=== PATIENT | male | born 1940 ===

== ENCOUNTER → 2020-08-10 10:53 | Outpatient (BNVA) | payer MEDICARE, SELFPAY | PROVIDERS: PCP Internal Medicine; Visit Provider Urology | DX: R39.12 Poor urinary stream (principal); R35.1 Nocturia; N32.0 Bladder-neck obstruction | CPT/HCPCS: 51798; 99212 ==

== ENCOUNTER → 2021-08-10 08:23 | Outpatient (BNVA) | payer MEDICARE, SELFPAY | PROVIDERS: PCP Internal Medicine; Visit Provider Urology | DX: R39.12 Poor urinary stream (principal); R35.1 Nocturia; N32.0 Bladder-neck obstruction; Z79.899 Other long term (current) drug therapy | CPT/HCPCS: 51798; 99212 ==

== ENCOUNTER 2022-08-07 08:30 | Outpatient (REF) | payer MEDICARE, SELFPAY ==
[2022-08-07 10:25] LABS: Prostate Specific Antigen 1.65 ng/mL (<0.05-4.0)
== END 2022-08-07 08:31 | disposition home or self-care (01) ==
LOC: HO.LAB 08:30
PROVIDERS: Visit Provider Urology
DX: Z12.5 Encounter for screening for malignant neoplasm of prostate (principal); N13.8 Other obstructive and reflux uropathy; N32.0 Bladder-neck obstruction; N40.1 Benign prostatic hyperplasia with lower urinary tract symptoms
CPT/HCPCS: 36415; 84153

== ENCOUNTER → 2022-08-13 08:11 | Outpatient (BNVA) | payer MEDICARE, SELFPAY | PROVIDERS: PCP Internal Medicine; Visit Provider Urology | DX: R35.1 Nocturia (principal); R39.12 Poor urinary stream; N32.0 Bladder-neck obstruction | CPT/HCPCS: 51798; 99212 ==

== ENCOUNTER 2023-08-08 07:57 | Outpatient (REF) | payer MEDICARE, SELFPAY ==
[2023-08-08 11:33] LABS: Prostate Specific Antigen 1.93 ng/mL (<0.05-4.0)
== END 2023-08-08 07:58 | disposition home or self-care (01) ==
LOC: HO.HMGCLDS 07:57
PROVIDERS: PCP Internal Medicine; Visit Provider Urology
DX: N32.0 Bladder-neck obstruction (principal); Z12.5 Encounter for screening for malignant neoplasm of prostate
CPT/HCPCS: 36415; 84153

== ENCOUNTER 2023-08-14 08:11 | Outpatient (AMB) | payer MEDICARE, SELFPAY ==
--- NOTE | 2023-08-14 08:24 | MHC.OFFVIS ---
Intake Visit Reasons: 1Y PSA/PVR(set) Intake Note: Patient is Present for PVR/PSA Urology Med:Finasteride, Terazosin Antibiotic Allergy:None Blood Thinner:Warfarin Last PVR: 0 Todays PVR: 14 Allergies No Known Allergies Allergy (Verified 08/14/23 08:31) HPI Comments Details: All QUIÑONEZ is a very pleasant Japanese male. He is a patient of Dr Harman. He is seen for the following urologic conditions. - lower urinary tract symptoms Yearly review Combination finasteride and terazosin PVR 20 Previously had failed when tried coming off terazosin Uses finasteride daily 12 month follow-up Lower Urinary Tract Symptoms: Here with his - She is translating Japanese for me Twelve month review Continues with combination therapy terazosin and finasteride Effective bladder emptying with reasonable stream Current visit is for further evaluation of, predominate obstructive symptoms. Current treatment includes 11/10 , medication, alpha roland, terazosin 2mg 12/10 , medication, alpha roland, terazosin 10mg add finasteride 06/11 trial stopping terazosin failed Prostate Symptom Score Moderate (9-19), Bother 4. Symptoms include 11/10 incomplete emptying, intermittency, weak stream, straining, nocturia (>2), and are progressing 12/10 , weak stream, nocturia (>2), and are stable 06/11 , incomplete emptying, weak stream, nocturia (>2), and are improving. Results from testing include cystoscopy Trilobar hypertrophy 12/10 Prior Prostate Score moderate. PSA PSA 11/10 4.8, 05/11 2.3, 05/12 2.3, 08/16 1.65, 08/17 1.9 Prostate volume 75gm US 11/10. [facility] Medical History Bladder outlet obstruction Bladder outlet obstruction History of kidney stones HTN (hypertension) Nocturia Nocturia Weak urinary stream Weak urinary stream Review of Systems Const Denies chills and Denies fever(s) Card Reports no additional complaints and Denies syncope Resp Denies cough GI Denies abdominal pain and Denies heartburn Reports as per HPI and Denies change in libido Neuro Denies syncope Psych Denies change in libido Endo Denies change in libido Physical Exam Const General: cooperative, healthy appearing, comfortable and no acute distress Orientation/consciousness: patient oriented x3 HEENT Face and sinus: Yes normal facial exam Mouth: moist mucous membranes Neck Neck: Yes normal visual inspection, Yes full ROM and Yes trachea midline Chest Chest palpation & inspection: normal inspection of the chest Resp Effort & Inspection: normal respiratory effort, able to speak in complete sentences and no respiratory distress GI Inspection: Yes normal to inspection Back/Spine/Pelvis Cervical Spine: normal cervical lordosis Thoracic/Lumbar Spine: thoracic and lumbar spine normal to inspection Skin General skin exam: no rashes or lesions noted Neuro General: patient oriented x3, gait normal, tone normal and moves all extremities Extrem General: Yes normal to inspection and Yes capillary refill normal Office Procedures Post Void Residual Post Residual Void Post Void Residual (PVR): 14 [id number]-[id number] Void Residual by ultrasound Assessment & Plan Assessment & Plan (1) Bladder outlet obstruction: Code(s): N32.0 - Bladder-neck obstruction Category: Medical (2) Nocturia: Code(s): R35.1 - Nocturia Category: Medical Plan Twelve month follow-up Orders: Orders AMB Post Void Residual by ultrasound Today N32.0 - Bladder-neck obstruction Prostate Specific Antigen 364 Days N32.0 - Bladder-neck obstruction Patient Instructions: Imaging studies, laboratory and physical exam results were discussed and reviewed in detail. No major barriers to patient understanding were identified. An opportunity to ask questions regarding the treatment plan was provided. All questions were answered. The patient expressed understanding and agreement with the above treatment plan. The patient is aware they should contact our office by phone for worsening of their current condition or the appearance of new urologic symptoms. Compliance is encouraged with any medications and followup testing that is ordered. It is a privilege to participate in the urologic care of your patient. If you have any questions or concerns regarding treatment for the above conditions, or other urologic issues, please do not hesitate to contact me. The office telephone contact is [phone]. This note is constructed using voice recognition software. While every effort has been made to ensure accuracy integrated circuit ic layout designer errors may have been included. Yours sincerely, Dr Vadim Kidd MD, [facility] - Urology Providers of Expert, Compassionate Care for the Genitourinary System Coding Level of Care Code Est Pt Level 4 (07449) Diagnoses Bladder outlet obstruction N32.0 Nocturia R35.1 CPT Codes Post Residual Void - PVR CPT Code: 41838-Guxj Void Residual by ultrasound ([id number])
== END 2023-08-14 08:38 | disposition home or self-care (01) ==
PROVIDERS: PCP Internal Medicine; Visit Provider Urology
DX: N32.0 Bladder-neck obstruction (principal); R35.1 Nocturia
CPT/HCPCS: 99213

== ENCOUNTER → 2023-08-14 08:11 | Outpatient (BNVA) | payer MEDICARE, SELFPAY | PROVIDERS: PCP Internal Medicine; Visit Provider Urology | DX: N32.0 Bladder-neck obstruction (principal); R35.1 Nocturia | CPT/HCPCS: 51798; 99212 ==

== ENCOUNTER 2023-12-07 08:11 | Observation (INO) | payer MEDICARE, SELFPAY ==
[2023-12-07] VITALS (7 sets, daily range): BP systolic 129–182; BP diastolic 48–78; PULSE 33–78; RESP 14–18; TEMP 36.4–37.2; O2SAT 95–98; BMI 33.2
--- NOTE | ~2023-12-07 | US_ITS ---
EXAMINATION: US SCROTUM CLINICAL INFORMATION: Testicular mass, swelling. COMPARISON: None available. TECHNIQUE: A sonogram of the scrotum was performed assessing burdick-scale appearance and color Doppler flow. Spectral Doppler analysis of the arterial and venous flow were performed in the testes bilaterally. FINDINGS: RIGHT: Right testicle measures 4 x 3 x 2.2 cm, volume 14 mL. Heterogeneous matrix, No focal testicular parenchymal lesions are visualized. Spectral Doppler analysis of the arterial and venous flow is normal in the right testis. Intratesticular echogenic foci probably punctate calcifications. Right epididymal head is normal in size. No right hydrocele or varicocele is seen. Right epididymal Doppler flow is normal. LEFT: Left testicle measures 2.3 x 1.7 x 2.3 cm, volume 4.7 mL. No focal testicular parenchymal lesions are visualized. Spectral Doppler analysis of the arterial and venous flow is normal in the left testis. Left epididymal: Large epididymal head cyst measuring up to 288 mL. US/US scrotum IMPRESSION: 1. No suspicious intratesticular mass. 2. Large left epididymal head cyst 288 mL. 3. Heterogeneous right testicle without evidence of focal lesion. 4. Echogenic foci in the right testicle probably punctate calcifications. Electronically signed by: Gabriel Handley MD 12/07/2023 10:29 AM EDT
--- NOTE | ~2023-12-07 | US_ITS ---
EXAMINATION: US SCROTUM CLINICAL INFORMATION: Testicular mass, swelling. COMPARISON: None available. TECHNIQUE: A sonogram of the scrotum was performed assessing burdick-scale appearance and color Doppler flow. Spectral Doppler analysis of the arterial and venous flow were performed in the testes bilaterally. FINDINGS: RIGHT: Right testicle measures 4 x 3 x 2.2 cm, volume 14 mL. Heterogeneous matrix, No focal testicular parenchymal lesions are visualized. Spectral Doppler analysis of the arterial and venous flow is normal in the right testis. Intratesticular echogenic foci probably punctate calcifications. Right epididymal head is normal in size. No right hydrocele or varicocele is seen. Right epididymal Doppler flow is normal. LEFT: Left testicle measures 2.3 x 1.7 x 2.3 cm, volume 4.7 mL. No focal testicular parenchymal lesions are visualized. Spectral Doppler analysis of the arterial and venous flow is normal in the left testis. Left epididymal: Large epididymal head cyst measuring up to 288 mL. US/US scrotum doppler IMPRESSION: 1. No suspicious intratesticular mass. 2. Large left epididymal head cyst 288 mL. 3. Heterogeneous right testicle without evidence of focal lesion. 4. Echogenic foci in the right testicle probably punctate calcifications. Electronically signed by: Gabriel Handley MD 12/07/2023 10:29 AM EDT
--- NOTE | 2023-12-07 08:34 | ED_ITS ---
HPI - Male Genitourinary General Chief complaint: Urogenital-Male Stated complaint: private area discomfort Time Seen by Provider: 12/07/23 08:18 Source: patient and family Mode of arrival: ambulatory Limitations: language barrier (Zambian speaking) History of Present Illness HPI Narrative: Patient is an 83-year-old male Zambian speaking presenting to emergency department with and son for evaluation. Patient did not mention his current symptoms to anyone up until today. He has been experiencing left testicular swelling for ?months?. states that when she checked recently it was ?hard like a goose egg?. They contacted his urologist Dr. Kidd, and were able to get an appointment scheduled but not until later this month 12/23/2023. He denies any pain, trauma, redness, swelling, pain with urination. No associated abdominal pain. No abnormal penile discharge or hematuria. Related Data Home Medications ?Medication ?Instructions ?Recorded ?Confirmed lisinopril 2.5 mg tablet 2.5 mg PO DAILY 08/10/20 08/13/22 simvastatin 10 mg tablet 10 mg PO BEDTIME 08/10/20 08/13/22 warfarin 5 mg tablet 5 mg PO DAILY 08/10/20 08/13/22 lisinopril 5 mg tablet 5 mg PO BEDTIME 08/10/21 08/13/22 Previous Rx's ?Medication ?Instructions ?Recorded finasteride 5 mg tablet 5 mg PO DAILY 90 days #90 tabs 08/14/23 terazosin 10 mg capsule 10 mg PO BEDTIME 90 days #90 caps 08/14/23 Allergies Allergy/AdvReac Type Severity Reaction Status Date / Time No Known Allergies Allergy Verified 12/07/23 08:15 [facility] Past Medical History Medical History HTN (hypertension) History of kidney stones Weak urinary stream Bladder outlet obstruction Nocturia Weak urinary stream Bladder outlet obstruction Nocturia Social History Social History Advance Directives: Yes Advance Directives Information Provided: No Advance Directives on File: No Physical Exam 2 Vital Signs: Vital Signs: Last Vital Signs Temp 98.9 F 12/07/23 10:38 Pulse 42 L 12/07/23 10:38 Resp 14 12/07/23 10:38 BP 129/48 L 12/07/23 10:38 Pulse Ox 95 12/07/23 10:38 O2 Del Method Room Air 12/07/23 10:38 BMI result Body Mass Index 33.2 Appearance: Alert.?Oriented to person, place and time. No acute distress.?Normal affect. Neck: Normal inspection.? Neck supple.?? CVS: Heart sounds normal. Normal heart rate and rhythm.? Pulses normal.?? Respiratory: No respiratory distress.? Lung sounds clear to auscultation bilaterally?? Abdomen: Soft and non-tender. Normoactive bowel sounds. Urogenital: Performed with supervisor drying and winding, ED RN Kerline : Left testicular enlargement, no erythema or warmth, no pain upon palpation. Some decreased swelling while supine. Negative cremasteric reflex. Negative phren sign Skin: Skin warm and dry.? Normal skin color.? Extremities: No lower extremity edema.? Neuro: Moves all extremities spontaneously. Sensation intact bilaterally. Ambulates with normal steady gait. Course Reevaluation(s) Reevaluation #1: ED forensic technician was obtaining routine vital signs patient was found to be bradycardic with pulse in the 40s. Patient is entirely asymptomatic at this time. Patient's states that he had a routine EKG with primary care doctor in March of this year and was advised that ?the heart was a little slow?. On telemetry appears to be possibly AFib. EKG was obtained revealing AFib slow ventricular response rate of 41, incomplete right bundle-branch block, QTC 420, no acute ischemic findings. informs at this time that he has a history of atrial fibrillation, on review of pharmacy records he is prescribed metoprolol, no evidence of beta- blockers he is on lisinopril. Pulses noted to drop as low as in the 30s. Remains asymptomatic. I discussed this case with my attending Dr. Carias, recommends no intervention at this time. Should patient become symptomatic will consider atropine 0.5 mg Scrotal ultrasound without evidence of torsion, found to have a large left epididymal head cyst 280 mL concerning for cystadenoma benign tumor verses possible carcinoma Reviewed these findings with patient's son and . Planning for hospital admission, will speak with hospitalist Time: 10:51 Medical Decision Making Medical Decision Making MDM Narrative: Patient is an 83-year-old male with past medical history of hypertension, bladder outlet obstruction, nephrolithiasis, atrial fibrillation on warfarin presenting to emergency department for evaluation of testicular swelling. Decreased fullness while supine suspect hydrocele versus spermatocele involving the left testicle. Basic serum labs, urinalysis, and ultrasound be obtained for further evaluation. Patient without pain at this time otherwise appears well, nontoxic, afebrile. Differential Diagnosis Differential Diagnoses: The differential diagnosis associated with the presentation includes (Hydrocele, varicocele, testicular cancer, lower suspicion for torsion) Admission/Observation Consideration of admission/observation: Escalation of care including admission/observation considered (See narrative above and course narrative for further detail) Lab Data 12/07/23 08:48 12/07/23 08:48 Labs: Lab Results 12/07/23 12/07/23 Range/Units 08:48 10:01 WBC 5.0 (4.8-10.8) X10*3/uL RBC 4.34 L (4.60-5.80) X10*6/uL Hgb 13.2 L (14.0-18.0) g/dl Hct 40.8 L (42.0-52.0) % MCV 94.0 (80.0-98.0) fL MCH 30.4 (27.0-33.0) pg MCHC 32.4 (31.0-36.0) g/dl RDW 13.4 (11.0-16.0) % Plt Count 148 L (160-400) X10*3/uL MPV 10.1 (9.4-12.4) fL Immature Gran % (Auto) 0.4 (0.0-0.4) % Neut % (Auto) 69.4 (45-73) % Lymph % (Auto) 17.8 L (20-40) % [place] % (Auto) 9.6 (2-11) % Eos % (Auto) 2.0 (0-4) % Baso % (Auto) 0.8 (0-2) % Lymph # (Auto) 0.9 L (1.2-4.9) X10*3/uL [place] # (Auto) 0.5 (0.1-1.2) X10*3/uL Eos # (Auto) 0.1 (0.0-0.4) X10*3/uL Baso # (Auto) 0.0 (0.0-0.2) X10*3/uL Abs Immat Gran (auto) 0.02 (0.00-0.03) X10*3/uL Absolute Neuts (auto) 3.5 (2.0-8.3) x10*3/uL Absolute Nucleated RBC 0.000 (0.0-0.012) X10*3/uL Nucleated RBC % (auto) 0.0 (0.0-0.2) /100WBC Sodium 143 (135-145) mmol/L Potassium 3.8 (3.3-5.1) mmol/L Chloride 108 (96-108) mmol/L Carbon Dioxide 24 (22-29) mmol/L Anion Gap 15 (12-20) BUN 24 H (9-16) mg/dL Creatinine 0.95 (0.5-1.4) mg/dL Estim Creat Clear Calc 68.9 Estimated GFR > 60 Random Glucose 101 (60-115) mg/dL Calcium 8.7 (8.4-10.2) mg/dL Total Bilirubin 0.6 (0.0-1.0) mg/dL AST 16 (5-37) U/L ALT 15 (0-40) U/L Alkaline Phosphatase 76 (39-117) U/L Total Protein 6.4 L (6.5-8.0) g/dL Albumin 4.0 (3.5-5.0) g/dL Urine Color Yellow Urine Appearance Clear Urine pH 5.5 (5.0-9.0) Ur Specific [place] 1.015 (1.005-1.025) Urine Protein Negative (Neg-Trace) mg/dL Urine Glucose (UA) Negative (Negative) mg/dL Urine Ketones Negative (Negative) mg/dL Urine Blood Large (3+) H (Negative) Urine Nitrite Negative (Negative) Ur Leukocyte Esterase Trace H (Negative) Urine RBC 11-20 H (0-2) /HPF Urine WBC 0-5 (0-5) /HPF Ur Squamous Epith Cells 0-2 (0-2) /HPF Urine Bacteria None Seen (None Seen) Hyaline Casts 0-2 (0-2) /LPF Independent Interpretation I performed an independent interpretation of an: EKG (See course narrative) Radiology Impression Discussion of test interpretation with radiology: I have reviewed the radiologist's reading. Radiologist Impression: US/US scrotum IMPRESSION: 1. No suspicious intratesticular mass. 2. Large left epididymal head cyst 288 mL. 3. Heterogeneous right testicle without evidence of focal lesion. 4. Echogenic foci in the right testicle probably punctate calcifications. Independent Historian Clinical information obtained from an independent historian. History obtained from or confirmed by: Spouse External Record Review External record reviewed: Outpatient record (Urology Dr. Kidd last visit July of 2023 routine follow-up) Discharge Plan Discharge Clinical Impression: Atrial fibrillation with slow ventricular response, Cyst of epididymis Patient Disposition: Admitted As Inpatient Prescriptions: No Action finasteride 5 mg tablet 5 mg PO DAILY 90 Days Qty: 90 3RF lisinopril 5 mg tablet 5 mg PO BEDTIME simvastatin 10 mg tablet 10 mg PO BEDTIME warfarin 5 mg tablet 5 mg PO DAILY lisinopril 2.5 mg tablet 2.5 mg PO DAILY terazosin 10 mg capsule 10 mg PO BEDTIME 90 Days Qty: 90 3RF Print Language: Zambian
[2023-12-07 08:52] LABS: MANUAL DIFF FLAG NO
[2023-12-07 09:06] LABS: Basophils Percent Auto 0.8 % (0-2); Eosinophils Absolute Auto 0.1 X10*3/uL (0.0-0.4); Hematocrit 40.8 % (42.0-52.0); Hemoglobin 13.2 g/dl (14.0-18.0); Imm Gran Abs Auto 0.02 X10*3/uL (0.00-0.03); Imm Gran Pct Auto 0.4 % (0.0-0.4); Lymphocytes Absolute Auto 0.9 X10*3/uL (1.2-4.9); Lymphocytes Percent Auto 17.8 % (20-40); Mean Corpuscular HGB Conc 32.4 g/dl (31.0-36.0); Mean Corpuscular Hemoglobin 30.4 pg (27.0-33.0); Mean Platelet Volume 10.1 fL (9.4-12.4); Monocytes Absolute Auto 0.5 X10*3/uL (0.1-1.2); Monocytes Percent Auto 9.6 % (2-11); Neutrophils Absolute Auto 3.5 x10*3/uL (2.0-8.3); Neutrophils Percent Auto 69.4 % (45-73); Platelet Count 148 X10*3/uL (160-400); Red Blood Count 4.34 X10*6/uL (4.60-5.80); Red Cell Distribution Width 13.4 % (11.0-16.0)
[2023-12-07 09:32] LABS: Alanine Aminotransferase 15 U/L (0-40); Alkaline Phosphatase 76 U/L (39-117); Anion Gap 15 (12-20); Aspartate Amino Transferase 16 U/L (5-37); Bilirubin Total 0.6 mg/dL (0.0-1.0); Blood Urea Nitrogen 24 mg/dL (9-16); Calcium 8.7 mg/dL (8.4-10.2); Carbon Dioxide 24 mmol/L (22-29); Chloride 108 mmol/L (96-108); Creatinine Clr Calc Pharmacy 68.9; Estimated Glomerular Filt Rate > 60; Glucose Random 101 mg/dL (60-115); Potassium 3.8 mmol/L (3.3-5.1); Sodium 143 mmol/L (135-145); Total Protein 6.4 g/dL (6.5-8.0)
[2023-12-07 10:08] LABS: Appearance Urine Clear; Color Urine Yellow; Glucose Urine UA Negative (Negative); Leukocyte Esterase Urine Trace (Negative); Nitrite Urine Negative (Negative); PH 5.5 (5.0-9.0); Specific Gravity - Urine 1.015 (1.005-1.025); UMIC TRIGGER UACC YES; Urine Blood Large (3+) (Negative); Urine Ketones Negative (Negative); Urine Protein Negative (Neg-Trace)
[2023-12-07 10:12] LABS: Bacteria Urine None Seen (None Seen); Hyaline Casts Urine 0-2 /LPF (0-2); Squamous Epithelial Cell Urine 0-2 /HPF (0-2); WBC Urine 0-5 /HPF (0-5)
--- NOTE | 2023-12-07 10:50 | ECG_ITS ---
Test Reason : EMELYN Blood Pressure : / mmHG Vent. Rate : 041 BPM Atrial Rate : 000 BPM P-R Int : 000 ms QRS Dur : 110 ms QT Int : 510 ms P-R-T Axes : 000 028 024 degrees QTc Int : 420 ms Atrial fibrillation with slow ventricular response Incomplete right bundle branch block Abnormal ECG No previous ECGs available Referred By: Rukhsana Lomas Electronically Signed By:CAROLINE DODGE
--- NOTE | 2023-12-07 11:11 | PC.NURSE ---
patient found to be bradyc 30-40's - placed on media monitor, ekg obtained showing afib which patient does have history of. denies any associated symptoms at this time, plan for admission d/t hr. IV established, additional lab work obtained and sent
[2023-12-07 11:26] LABS: INTERNATIONAL NORM RATIO 3.3 (0.9-1.1); Prothrombin Time 38.3 SEC (10.9-12.4)
--- NOTE | 2023-12-07 11:34 | P.HPHOSP_ITS ---
History of Present Illness Date of Service: 12/07/23 Chief Complaint: left tesicular swelling Patient is an 83-year-old male with a past medical history of BPH and bladder outlet obstruction, AFib on Coumadin and not on any rate control drugs, hyperlipidemia who presented to the emergency room for evaluation of left testicular swelling. It is unclear how long this has been ongoing but, according to the who is bedside, the patient 1st reported this about 1 week prior to arrival to the ED. at that point the patient was given a follow-up appointment with Urology later this month. However today they decided to come to the emergency room for further evaluation. There has been no changes in size, no fevers or chills, no erythema. There is no bleeding or drainage. The patient reports an increase in swelling while walking/standing which improves with lying in the supine position. However, on arrival to the emergency room the patient was noted to be bradycardic. He was placed on the monitor and an EKG was completed which showed AFib with slow ventricular response with the heart rate dipping down into the 30s. The patient has remained asymptomatic throughout. He denies any chest pain or shortness of breath. He denies any dizziness or lightheadedness. There are no reports of syncopal episodes. In regards to his AFib, he is on Coumadin but is not on any rate-controlling drugs. Given his persistent bradycardia, the patient has been requested for hospitalization. The patient is seen and examined in the emergency room around 11:15. He does not appear to be in any distress and denies any current complaints. His and son are at bedside who helped translate and corroborate the story. Review of Systems 2 Review of Systems: Negative except HPI/interval history. [facility] Medical History HTN (hypertension) History of kidney stones Weak urinary stream Bladder outlet obstruction Nocturia Weak urinary stream Bladder outlet obstruction Nocturia Social History Patient Tobacco Use Status: Tobacco use Unknown Advance Directives: Yes Advance Directives Information Provided: No Advance Directives on File: No Meds Allergies Allergy/AdvReac Type Severity Reaction Status Date / Time No Known Allergies Allergy Verified 12/07/23 08:15 Active Medications: Current Medications Acetaminophen (Acetaminophen 325 Mg Tablet) 650 mg PO Q6H PRN PRN Reason: Pain, Mild (Pain Scale 1-3), fever or headache Calcium Carbonate (Calcium Carbonate 750 Mg Tab.Chew) 750 mg PO Q4H PRN PRN Reason: Heartburn Magnesium Hydroxide (Milk Of Magnesia 30 Ml Oral.Susp) 30 ml PO DAILY PRN PRN Reason: Constipation Melatonin (Melatonin 3 Mg Tablet) 6 mg PO BEDTIME PRN PRN Reason: Insomnia Sodium Chloride (0.9 % Sodium Chloride Flush 3 Ml Syringe) 3 ml IVFLUSH QSHIFT [facility] Home Medications ?Medication ?Instructions ?Recorded ?Confirmed ?Last Taken ?Type simvastatin 10 mg tablet 10 mg PO BEDTIME 08/10/20 12/07/23 12/06/23 History warfarin 5 mg tablet 5 mg PO SUTUWETHFRSA@1800 08/10/20 12/07/23 12/07/23 History acetaminophen 325 mg tablet 650 mg PO Q4H PRN Headache, Fever 12/07/23 12/07/23 Unknown History Or Pain cyanocobalamin (vitamin B-12) 1,000 mcg IM Q30D 12/07/23 12/07/23 12/03/23 History 1,000 mcg/mL injection solution (Dodex) lisinopril 10 mg tablet 10 mg PO DAILY 12/07/23 12/07/23 12/07/23 History warfarin 5 mg tablet 7.5 mg PO MO@1800 12/07/23 12/07/23 12/01/23 History Physical Exam 2 Vital Signs and Narrative: Vital Signs: Last Vital Signs Temp 98.9 F 12/07/23 10:38 Pulse 42 L 12/07/23 10:38 Resp 14 12/07/23 10:38 BP 129/48 L 12/07/23 10:38 Pulse Ox 95 12/07/23 10:38 O2 Del Method Room Air 12/07/23 10:38 BMI result Body Mass Index 33.2 Const: Other: Constitutional - Awake and Alert, No apparent distress Eyes - PERRLA, EOMI Cardiovascular - IRR, bradycardic in the 40s mostly; does increase to 50s with some exertion Respiratory - Normal lung expansion, Normal respiratory effort, No respiratory distress, CTA bilaterally Gastrointestinal - NT / ND; +BS; No rebound or guarding - L testicular swelling without significant tenderness or erythema Extremities - no calf tenderness bilaterally, no swelling Musculoskeletal - Normal inspection, normal ROM Skin - Warm/Dry Neurological - Alert & oriented x3, No focal deficit Psychological - Appropriate affect Results Labs 12/07/23 08:48 12/07/23 08:48 Labs: Laboratory Results - last 24 hr 12/07/23 12/07/23 12/07/23 08:48 10:01 11:08 MCV 94.0 MCH 30.4 MCHC 32.4 RDW 13.4 Plt Count 148 L MPV 10.1 Immature Gran % (Auto) 0.4 Neut % (Auto) 69.4 Lymph % (Auto) 17.8 L [place] % (Auto) 9.6 Eos % (Auto) 2.0 Baso % (Auto) 0.8 Lymph # (Auto) 0.9 L [place] # (Auto) 0.5 Eos # (Auto) 0.1 Baso # (Auto) 0.0 Abs Immat Gran (auto) 0.02 Absolute Neuts (auto) 3.5 Absolute Nucleated RBC 0.000 Nucleated RBC % (auto) 0.0 PT 38.3 H INR 3.3 H Anion Gap 15 Estim Creat Clear Calc 68.9 Estimated GFR > 60 Random Glucose 101 Calcium 8.7 Total Bilirubin 0.6 AST 16 ALT 15 Alkaline Phosphatase 76 Total Protein 6.4 L Albumin 4.0 Urine Color Yellow Urine Appearance Clear Urine pH 5.5 Ur Specific [place] 1.015 Urine Protein Negative Urine Glucose (UA) Negative Urine Ketones Negative Urine Blood Large (3+) H Urine Nitrite Negative Ur Leukocyte Esterase Trace H Urine RBC 11-20 H Urine WBC 0-5 Ur Squamous Epith Cells 0-2 Urine Bacteria None Seen Hyaline Casts 0-2 Imaging Radiologist's Impressions: Impressions Scrotum Ultrasound 12/07/23 09:07 IMPRESSION: 1. No suspicious intratesticular mass. 2. Large left epididymal head cyst 288 mL. 3. Heterogeneous right testicle without evidence of focal lesion. 4. Echogenic foci in the right testicle probably punctate calcifications. Electronically signed by: Gabriel Handley MD 12/07/2023 10:29 AM EDT Assessment and Plan (1) Atrial fibrillation with slow ventricular response: Status: Acute Plan 83 yo M who presented to ED for the evaluation of L testicular swelling and was noted to have a. fib with slow ventricular response. He will be place under observation for further cardiac monitoring and evaluation by the cardiology team. 1. A. Fib with slow ventricular response Asymptomatic Not on any rate controlling meds will monitor on tele and request cardiology consult INR 3.3 -- will hold coumadin today and re-eval tomorrow 2. BPH with bladder outlet obstruction continue fisasteride; hold terazosin 3. HLD statin 4. HTN hold lisinopril for now; pt is normotensive Full Code DVT pptx -- on Coumadin Quality Stroke Does the patient have a stroke diagnosis?: No VTE Prior VTE?: No VTE Risk Level:: Medical - moderate - high VTE Device Contraindication: Treatment Not Indicated VTE Drug Contraindication: N/A - Med Ordered
--- NOTE | 2023-12-07 11:58 | PHA.MEDREC ---
Pharmacy Consult ? Medication Reconciliation Pharmacy has completed the medication reconciliation. Spoke with at bedside. Pt takes warfarin in the morning, he took today's dose. Warfarin is dose 5m daily except 1.5 tablets (7.5mg) on Mondays. Pt's vitamin b 12 inject [id number] was last given on Friday. Pt took Warfarin this morning.
--- NOTE | 2023-12-07 12:35 | PC.NURSE ---
remains [place] at this time, continues to deny any related symptoms. ambulates independently to the bathroom with steady gait, remains asymptomatic upon ambulation. provided with hospital bed - at bedside in recliner.
[2023-12-07] MEDS: 0.9 % Sodium Chloride Flush 3 ML SYRINGE IVFLUSH ×2 (14:54→20:14)
[2023-12-07] MEDS: Atorvastatin Calcium 10 MG TABLET PO (17:00)
[2023-12-08] VITALS (12 sets, daily range): BP systolic 131–182; BP diastolic 60–80; PULSE 32–62; RESP 16–20; TEMP 36.3–36.9; O2SAT 95–98
[2023-12-08] MEDS: hydrALAZINE HCl 20 MG/ML VIAL 10 MG IVPUSH (00:05)
--- NOTE | 2023-12-08 00:57 | PC.NURSE ---
BP at 23:39 was manual 182/78. Assessed pt - states has a slight headache but has them time to time Notified MD- 10mg IV hydralizine ordered and administered with good effect pt states head feels better and BP 140/60 at 00:31
[2023-12-08] MEDS: Acetaminophen 325 MG TABLET 650 MG PO ×2 (04:07→14:10)
[2023-12-08 07:25] LABS: Prothrombin Time 34.6 SEC (10.9-12.4)
[2023-12-08] MEDS: Finasteride 5 MG TABLET PO (08:13)
[2023-12-08] MEDS: Atorvastatin Calcium 10 MG TABLET PO (08:13)
[2023-12-08] MEDS: 0.9 % Sodium Chloride Flush 3 ML SYRINGE IVFLUSH ×3 (08:14→20:22)
--- NOTE | 2023-12-08 08:29 | MHC.CM.PN ---
CM met with Patient and his at bedside and addressed HELM with them, providing Patient with the original and a copy has been placed on the chart. Patient lives in a house with his and he required no services nor DME [employer]. Home self care is the goal and CM has initiated and will follow for dc planning. PCP is Dr. ELDER and will transport to home. explains that Patient has a HCP that was completed by a Data Entry Processor and that she and her 2 Sons (Abelino & Rashawn) are the Agents; agrees to supply CM with a copy.
--- NOTE | 2023-12-08 10:00 | CA_ITS ---
Transthoracic Echocardiogram Patient (Last, First, Middle): All Dumont, Gender: Male Date of : 1940 Age: 83 Procedure Date: 12/08/2023 Procedure Type: Transthoracic Echocardiogram [place] [facility] [place]: 177.8 cm Weight: 104.78 kg BSA: 2.22 m2 Heart Rate: bpm BP: 161 / 79 mmHg Merchandising Manager: Referring MD: Dmitri Diane MD Symptoms: CHF Study Quality: Adequate ECG Rhythm: Atrial Fibrillation Conclusions: - The left ventricular systolic function is normal. The calculated ejection fraction is 62% by biplane method. - Severely increased right ventricular cavity size. - No obvious valvular pathology seen on this study. - Mild pulmonary hypertension is present. - There is mild dilatation of the ascending aorta measuring 4.00 cm. Findings Left Ventricle Normal left ventricular cavity size. There is mildly increased left ventricular wall thickness. The left ventricular systolic function is normal. The calculated ejection fraction is 62% by biplane method. There is no evidence of regional wall motion abnormalities. Diastolic function is indeterminate on the basis of available data. Right Ventricle Severely increased right ventricular cavity size. There is normal right ventricular systolic function. Atria The left atrium is moderately dilated. The right atrium is severely dilated. Aortic Valve There is mild calcification of the aortic valve. There is no aortic valve stenosis. There is no aortic valve regurgitation. Mitral Valve There is mild mitral annular calcification. There is trace mitral valve regurgitation. There is no mitral valve stenosis. Pulmonic Valve The pulmonic valve is likely normal. Tricuspid Valve There is mild tricuspid valve regurgitation. Mild pulmonary hypertension is present. Great Vessels There is mild dilatation of the ascending aorta measuring 4.00 cm. Venous The inferior vena cava is mildly dilated and collapses greater than 50% with inspiration. Pericardium/Pleural There is no evidence of pericardial effusion. Prior Study Comparison No prior study available for comparison. Recommendations, Care & Conclusions No obvious valvular pathology seen on this study. Measurements 2D Linear Measurements IVSd: 1.21 0.6-0.9/0.6-1.0 cm LVIDd: 5.06 3.9-5.3/4.2-5.9 cm LVIDd Index: 2.28 2.4-3.2/2.2-3.1 cm/m2 LVIDs: 2.94 2.0-3.6 cm LVPWd: 1.24 0.7-1.1 cm Ao Root: 3.20 2.1-3.5 cm LA Diam: 5.50 2.7-3.8/3.0-4.0 cm LAIDs Index: 2.48 1.5-2.3 cm/m2 LV Mass: 305.77 67-162/88-224 g LV Mass Index: 137.73 43-95/49-115 g/m2 LVOT Diam: 2.10 3.0+(-)1.3 cm 2D Systolic Function EF 4C: 66.20 >55% EF 2C: 59.20 >55% EF BiP: 61.80 >55% Mitral Valve MV Pk E: 1.20 MV Decel Time: 287.00 E'Lateral: 11.70 E'Medial: 8.16 E/E' Med: 14.70 E/E' Lat: 10.30 PHT: 84.00 MVA PHT: 2.62 Decel Shannon: 4.16 Aortic Valve AoV Pk Rex: 2.09 AoV Mn Rex: 1.38 AoV VTI: 0.46 AoV Pk Grad: 17.00 Aov Mn Grad: 9.00 ANDREW Cont.VTI: 2.04 LVOT LVOT Pk Rex: 1.01 LVOT Mn Rex: 0.72 LVOT VTI: 0.27 LVOT Pk Grad: 4.00 LVOT Mn Grad: 2.00 LVOT Diam: 2.10 LVOT Area: 3.46 Diastolic Function MV Pk E: 1.20 E'Medial: 8.16 E/E' Med: 14.70 E' Laterial: 11.70 E/E' Lat: 10.30 Right Ventricle TAPSE (mm): 31.00 TVS' Rex: 12.00 Tricuspid Valve TR Pk Rex: 3.08 TR Pk Grad: 38.00 RA Press: 3.00 RVSP: 41.00 Great Vessels Aorta Ao Root-2D: 3.20 2.0-3.7 cm Ao Asc: 4.00 2.1-3.4 cm Pulmonary Valve PV Pk Rex: 1.05 Peak PV Grad: 4.00 Updated in Other Vendor System with Status of Final Dmitri Diane MD electronically signed on 12/08/2023 12:47:55 PM with status of Final
--- NOTE | 2023-12-08 10:44 | HO.PM.IMPN ---
Subjective Subjective Date of Service: 12/08/23 Interval History: seen and examined no complaints at this time son bedside who translates Review of Systems Negative except HPI/interval history. Physical Exam Vital Signs: Vital Signs: Last Vital Signs Temp 97.4 F 12/08/23 07:43 Pulse 44 L 12/08/23 07:43 Resp 20 12/08/23 07:43 BP 161/79 H 12/08/23 07:43 Pulse Ox 97 12/08/23 07:43 O2 Del Method Room Air 12/08/23 07:43 BMI result Body Mass Index 33.2 Const: Other: General - no acute distress, appears comfortable Cardiovascular - IRR with bradycardia Lungs - normal respiratory effort, clear to auscultation bilaterally, no wheezing Abdomen - soft, nontender, no rebound or guarding Extremities - no edema bilaterally - L testicular swelling Neuro - awake and alert, no focal deficits Objective Data Active Medications Acetaminophen (Acetaminophen 325 Mg Tablet) 650 mg PO Q6H PRN PRN Reason: Pain, Mild (Pain Scale 1-3), fever or headache Last Admin: 12/08/23 04:07 Dose: 650 mg Documented By: JAYSON Atorvastatin Calcium (Atorvastatin Calcium 10 Mg Tablet) 10 mg PO DAILY [facility] Last Admin: 12/08/23 08:13 Dose: 10 mg Documented By: KARLIE Calcium Carbonate (Calcium Carbonate 750 Mg Tab.Chew) 750 mg PO Q4H PRN PRN Reason: Heartburn Finasteride (Finasteride 5 Mg Tablet) 5 mg PO DAILY [facility] Last Admin: 12/08/23 08:13 Dose: 5 mg Documented By: KARLIE Magnesium Hydroxide (Milk Of Magnesia 30 Ml Oral.Susp) 30 ml PO DAILY PRN PRN Reason: Constipation Melatonin (Melatonin 3 Mg Tablet) 6 mg PO BEDTIME PRN PRN Reason: Insomnia Sodium Chloride (0.9 % Sodium Chloride Flush 3 Ml Syringe) 3 ml IVFLUSH QSHIFT [facility] Last Admin: 12/08/23 08:14 Dose: 3 ml Documented By: KARLIE Labs 12/07/23 08:48 12/07/23 08:48 Labs: Laboratory Results - last 24 hr 12/07/23 12/08/23 11:08 05:52 Hold Purple Top SEE NOTE PT 38.3 H 34.6 H INR 3.3 H 3.0 H Assessment and Plan (1) Cyst of epididymis: Status: Acute (2) Atrial fibrillation with slow ventricular response: Status: Acute Plan 83 yo M who presented to ED for the evaluation of L testicular swelling and was noted to have a. fib with slow ventricular response. He will be place under observation for further cardiac monitoring and evaluation by the cardiology team. 1. A. Fib with slow ventricular response Asymptomatic Not on any rate controlling meds cardiology input appreciated -- will check echo contineu to monitor on tele for now 2. BPH with bladder outlet obstruction 2a. L testicular swelling continue fisasteride; hold terazosin u/s showing epididymal cyst with volume 288 -- urology consult reqquested 3. HLD statin 4. HTN hold lisinopril for now; pt is normotensive Full Code DVT pptx -- on Coumadin reason for ongoing hospitalization -- telemonitor + urology eval Quality Stroke Does the patient have a stroke diagnosis?: No VTE Prior VTE?: No VTE Risk Level:: Medical - moderate - high VTE Device Contraindication: Treatment Not Indicated VTE Drug Contraindication: N/A - Med Ordered
--- NOTE | 2023-12-08 11:07 | PM.CNCAR ---
History of Present Illness History of Present Illness Date of Service: 12/08/23 Chief complaint: bradycardia Narrative: This is a cardiology consultation regarding bradycardia. It appears that patient might be going to [facility] for outpatient cardiac care. Has a history of atrial fibrillation, possibly slow ventricular response at baseline based on discussion with son/. It seems that there is mention of possible pacemaker in the future and hence suspect this is a long-term issue. Patient does not take any rate control or rhythm control medications. He is on anticoagulation with Coumadin. Current admissions because of testicular swelling. In this context, telemetry had shown atrial fibrillation slow rate and hence we are asked to see him. Patient's only complaint is testicular swelling and nothing else. No dizziness, syncope, presyncope, shortness of breath, angina, leg swelling or in fact anything else from cardiac. Also denies any history of coronary artery disease or myocardial infarction or cardiomyopathy. Review of Systems Review of Systems: Yes all other systems are reviewed and are negative Constitutional: Constitutional: Reports as per HPI and Reports no additional constitutional complaints Eyes: Eyes: Reports as per HPI and Denies no additional eye complaints ENT: Denies system reviewed and no additional complaints, except as documented and Reports as per HPI Cardiovascular: Cardiovascular: Reports as per HPI, Reports no additional cardiovascular complaints, Denies acrocyanosis, Denies cool extremities, Denies chest pain, Denies leg edema, Denies lightheadedness, Denies palpitations and Denies dyspnea Respiratory: Respiratory: Reports as per HPI, Denies no additional respiratory complaints and Denies dyspnea Gastrointestinal: Gastrointestinal: Reports as per HPI and Denies no additional gastrointestinal complaints Genitourinary: Genitourinary: Reports no additional male genitourinary complaints and Reports as per HPI Musculoskeletal: Musculoskeletal: Reports no additional musculoskeletal complaints and Reports as per HPI Integumentary/Breasts: Skin/Breast: Reports system reviewed and no additional complaints, except as docu Neurologic: Reports system reviewed and no additional complaints, except as documented and Reports as per HPI Psychiatric: Psychiatric: Reports no additional psychiatric complaints and Reports as per HPI Endocrine: Endocrine: Reports no additional endocrine complaints, Reports as per HPI and Denies palpitations Hematologic/Lymphatic: Hematologic/Lymphatic: Reports no additional hematologic/lymphatic complaints and Reports as per HPI Allergic/Immunologic: Allergic/Immunologic: Reports no additional allergic/immunologic complaints and Reports as per HPI [facility] Past Medical History Medical History (Updated 12/08/23 @ 11:52 by Dmitri Diane MD) HTN (hypertension) History of kidney stones Weak urinary stream Bladder outlet obstruction Nocturia Weak urinary stream Bladder outlet obstruction Nocturia Family History Family History Father No problems noted. Mother No problems noted. Social History Social History Household Members: Spouse Housing: House Do you presently have visiting nurse or other home services: No Patient Tobacco Use Status: Tobacco use Unknown Second Hand Smoke Exposure: No service: No Meds Allergies Allergy/AdvReac Type Severity Reaction Status Date / Time No Known Allergies Allergy Verified 12/07/23 08:15 Active Medications: Current Medications Acetaminophen (Acetaminophen 325 Mg Tablet) 650 mg PO Q6H PRN PRN Reason: Pain, Mild (Pain Scale 1-3), fever or headache Last Admin: 12/08/23 04:07 Dose: 650 mg Atorvastatin Calcium (Atorvastatin Calcium 10 Mg Tablet) 10 mg PO DAILY [facility] Last Admin: 12/08/23 08:13 Dose: 10 mg Calcium Carbonate (Calcium Carbonate 750 Mg Tab.Chew) 750 mg PO Q4H PRN PRN Reason: Heartburn Finasteride (Finasteride 5 Mg Tablet) 5 mg PO DAILY [facility] Last Admin: 12/08/23 08:13 Dose: 5 mg Magnesium Hydroxide (Milk Of Magnesia 30 Ml Oral.Susp) 30 ml PO DAILY PRN PRN Reason: Constipation Melatonin (Melatonin 3 Mg Tablet) 6 mg PO BEDTIME PRN PRN Reason: Insomnia Sodium Chloride (0.9 % Sodium Chloride Flush 3 Ml Syringe) 3 ml IVFLUSH QSHIFT [facility] Last Admin: 12/08/23 08:14 Dose: 3 ml Home Medications ?Medication ?Instructions ?Recorded ?Confirmed ?Last Taken ?Type simvastatin 10 mg tablet 10 mg PO BEDTIME 08/10/20 12/07/23 12/06/23 History warfarin 5 mg tablet 5 mg PO SUTUWETHFRSA@1800 08/10/20 12/07/23 12/07/23 History acetaminophen 325 mg tablet 650 mg PO Q4H PRN Headache, Fever 12/07/23 12/07/23 Unknown History Or Pain cyanocobalamin (vitamin B-12) 1,000 mcg IM Q30D 12/07/23 12/07/23 12/03/23 History 1,000 mcg/mL injection solution (Dodex) lisinopril 10 mg tablet 10 mg PO DAILY 12/07/23 12/07/23 12/07/23 History warfarin 5 mg tablet 7.5 mg PO MO@1800 12/07/23 12/07/23 12/01/23 History Physical Exam Vital Signs: Vital Signs: Last Vital Signs Temp 97.4 F 12/08/23 07:43 Pulse 44 L 12/08/23 07:43 Resp 20 12/08/23 07:43 BP 161/79 H 12/08/23 07:43 Pulse Ox 97 12/08/23 07:43 O2 Del Method Room Air 12/08/23 07:43 BMI result Body Mass Index 33.2 Const: General: comfortable and no acute distress Orientation/consciousness: patient oriented x3 HEENT: Other: Unremarkable Head: Yes normal to inspection Neck: Neck: Yes normal visual inspection Chest: Chest palpation & inspection: normal inspection of the chest Resp: Auscultation: clear to auscultation bilaterally Cardio: Palpation: normal PMI Heart sounds: S1 normal heart sound present, S2 normal heart sound present, no gallops, no murmurs and no rubs GI: Palpation (GI): Soft to palpation Back/Spine/Pelvis: Other: unremarkable Skin: General skin exam: no rashes or lesions noted Neuro: General: patient oriented x3 Extrem: General: Yes normal to inspection Psych: Mental Status: mental status grossly normal Objective Labs and Meds 12/07/23 08:48 12/07/23 08:48 Lab results: Laboratory Results - last 24 hr 12/07/23 12/08/23 11:08 05:52 Hold Purple Top SEE NOTE PT 38.3 H 34.6 H INR 3.3 H 3.0 H ECG Interpretation: EKG with atrial fibrillation with a slow rate at 41/Min. Incomplete right bundle-branch block. Currently, rate in the 50s. Assessment and Plan (1) Atrial fibrillation with slow ventricular response: Status: Acute (2) HTN (hypertension): Status: Acute (3) Cyst of epididymis: Status: Acute Plan Suspect this is a long-term issue and doubt acute. He does not have any clear-cut symptoms from the bradycardia and also does not have any heart failure symptoms or signs. Hence no specific management for the unless there is profound bradycardia or prolonged pauses and with symptoms. We will get an echocardiogram to ensure there is no significant right heart dysfunction as that could sometimes lead to testicular swelling. However, on the ultrasound of scrotum, there is a large cyst and most likely that is the reason for the swelling. Discussed with son at the bedside and with over the phone. Discussed with Dr. Elkins. Procedures Date of Service Date of Service: 12/08/23
[2023-12-08] MEDS: lisinopriL 10 MG TABLET PO (12:34)
[2023-12-08] MEDS: Warfarin Sodium 7.5 MG TABLET PO (17:35)
--- NOTE | 2023-12-08 19:47 | PM.UROCN ---
History of Present Illness Consult details Consult date: 12/08/23 Narrative: CC: Left scrotal swelling 83-year-old [place]i speaking male Known to Urology in followed for BPH Admit with bradycardia Patient disclosed large swelling on left testicle Scrotal ultrasound performed - large epididymal cyst Discussed with patient and Will follow as outpatient with plan for excision Has come off terazosin and will stay on finasteride Review of Systems Constitutional: Constitutional: Reports as per HPI and Reports no additional constitutional complaints Cardiovascular: Cardiovascular: Reports as per HPI and Reports no additional cardiovascular complaints Respiratory: Respiratory: Reports as per HPI and Reports no additional respiratory complaints Gastrointestinal: Gastrointestinal: Reports as per HPI and Reports no additional gastrointestinal complaints Genitourinary: Genitourinary: Reports as per HPI Musculoskeletal: Musculoskeletal: Reports no additional musculoskeletal complaints and Reports as per HPI Neurologic: Reports system reviewed and no additional complaints, except as documented and Reports as per HPI [facility] Past Medical History Medical History (Updated 12/08/23 @ 11:52 by Dmitri Diane MD) HTN (hypertension) History of kidney stones Weak urinary stream Bladder outlet obstruction Nocturia Weak urinary stream Bladder outlet obstruction Nocturia Family History Family History (Updated 12/08/23 @ 11:48 by Dmitri Diane MD) Father No problems noted. Mother No problems noted. Social History Social History Household Members: Spouse Housing: House Do you presently have visiting nurse or other home services: No Patient Tobacco Use Status: Tobacco use Unknown Second Hand Smoke Exposure: No service: No Meds Allergies Allergy/AdvReac Type Severity Reaction Status Date / Time No Known Allergies Allergy Verified 12/07/23 08:15 Active Medications: Current Medications Acetaminophen (Acetaminophen 325 Mg Tablet) 650 mg PO Q6H PRN PRN Reason: Pain, Mild (Pain Scale 1-3), fever or headache Last Admin: 12/08/23 14:10 Dose: 650 mg Atorvastatin Calcium (Atorvastatin Calcium 10 Mg Tablet) 10 mg PO DAILY [facility] Last Admin: 12/08/23 08:13 Dose: 10 mg Calcium Carbonate (Calcium Carbonate 750 Mg Tab.Chew) 750 mg PO Q4H PRN PRN Reason: Heartburn Doxazosin Mesylate (Doxazosin Mesylate 2 Mg Tablet) 8 mg PO BEDTIME [facility] Finasteride (Finasteride 5 Mg Tablet) 5 mg PO DAILY [facility] Last Admin: 12/08/23 08:13 Dose: 5 mg Lisinopril (Lisinopril 10 Mg Tablet) 10 mg PO DAILY [facility]; Protocol Last Admin: 12/08/23 12:34 Dose: 10 mg Magnesium Hydroxide (Milk Of Magnesia 30 Ml Oral.Susp) 30 ml PO DAILY PRN PRN Reason: Constipation Melatonin (Melatonin 3 Mg Tablet) 6 mg PO BEDTIME PRN PRN Reason: Insomnia Sodium Chloride (0.9 % Sodium Chloride Flush 3 Ml Syringe) 3 ml IVFLUSH QSHIFT [facility] Last Admin: 12/08/23 17:35 Dose: 3 ml Warfarin Sodium (Warfarin Sodium 7.5 Mg Tablet) 7.5 mg PO MO@1800 [facility] Last Admin: 12/08/23 17:35 Dose: 7.5 mg Warfarin Sodium (Warfarin Sodium 5 Mg Tablet) 5 mg PO SUTUWETHFRSA@1800 [facility] Home Medications ?Medication ?Instructions ?Recorded ?Confirmed ?Last Taken ?Type simvastatin 10 mg tablet 10 mg PO BEDTIME 08/10/20 12/07/23 12/06/23 History warfarin 5 mg tablet 5 mg PO SUTUWETHFRSA@1800 08/10/20 12/07/23 12/07/23 History acetaminophen 325 mg tablet 650 mg PO Q4H PRN Headache, Fever 12/07/23 12/07/23 Unknown History Or Pain cyanocobalamin (vitamin B-12) 1,000 mcg IM Q30D 12/07/23 12/07/23 12/03/23 History 1,000 mcg/mL injection solution (Dodex) lisinopril 10 mg tablet 10 mg PO DAILY 12/07/23 12/07/23 12/07/23 History warfarin 5 mg tablet 7.5 mg PO MO@1800 12/07/23 12/07/23 12/01/23 History Physical Exam Vital Signs: Vital Signs: Last Vital Signs Temp 98.4 F 12/08/23 16:00 Pulse 52 12/08/23 16:00 Resp 19 12/08/23 16:00 BP 169/76 H 12/08/23 16:00 Pulse Ox 95 12/08/23 16:00 O2 Del Method Room Air 12/08/23 16:00 BMI result Body Mass Index 33.2 Const: General: cooperative, healthy appearing, comfortable and no acute distress Orientation/consciousness: patient oriented x3 HEENT: Face and sinus: Yes normal facial exam Mouth: moist mucous membranes Neck: Neck: Yes normal visual inspection, Yes full ROM and Yes trachea midline Chest: Chest palpation & inspection: normal inspection of the chest Resp: Effort & Inspection: normal respiratory effort, able to speak in complete sentences and no respiratory distress GI: Inspection: Yes normal to inspection Back/Spine/Pelvis: Cervical Spine: normal cervical lordosis Thoracic/Lumbar Spine: thoracic and lumbar spine normal to inspection Skin: General skin exam: no rashes or lesions noted Neuro: General: patient oriented x3, tone normal and moves all extremities Extrem: General: Yes normal to inspection and Yes capillary refill normal Results Labs 12/07/23 08:48 12/07/23 08:48 Labs: Abnormal lab results 12/08/23 Range/Units 05:52 PT 34.6 H (10.9-12.4) SEC INR 3.0 H (0.9-1.1) Urine 12/07/23 Range/Units 10:01 Urine Color Yellow Urine Appearance Clear Urine pH 5.5 (5.0-9.0) Ur Specific [place] 1.015 (1.005-1.025) Urine Protein Negative (Neg-Trace) mg/dL Urine Glucose (UA) Negative (Negative) mg/dL All other labs normal. Assessment and Plan (1) Cyst of epididymis: Status: Acute Plan Outpatient follow-up with Plan for intervention Nonacute urologic conditions Procedures Date of Service Date of Service: 12/08/23
[2023-12-08] MEDS: Doxazosin Mesylate 2 MG TABLET 8 MG PO (20:18)
[2023-12-09] MEDS: Acetaminophen 325 MG TABLET 650 MG PO (03:05)
[2023-12-09 03:12] VITALS: BP 160/68
[2023-12-09 04:00] VITALS: PULSE 51; RESP 20; TEMP 36.8; O2SAT 95
[2023-12-09 04:59] VITALS: PULSE 44
[2023-12-09 07:20] LABS: INTERNATIONAL NORM RATIO 2.4 (0.9-1.1); Prothrombin Time 27.9 SEC (10.9-12.4)
[2023-12-09 07:54] VITALS: BP 137/63; PULSE 52; RESP 18; TEMP 36.4; O2SAT 94
[2023-12-09] MEDS: 0.9 % Sodium Chloride Flush 3 ML SYRINGE IVFLUSH (08:13)
[2023-12-09] MEDS: Finasteride 5 MG TABLET PO (08:13)
[2023-12-09] MEDS: lisinopriL 10 MG TABLET PO (08:13)
[2023-12-09] MEDS: Atorvastatin Calcium 10 MG TABLET PO (08:13)
--- NOTE | 2023-12-09 10:47 | PM.PNCARD ---
Subjective Subjective Date of Service: 12/09/23 Interval history: Patient has no clear symptoms. is at the bedside and son this on the phone. Review of Systems Review of Systems Yes all other systems are reviewed and are negative Constitutional: Reports as per HPI and Reports no additional constitutional complaints Eyes: Reports as per HPI and Denies no additional eye complaints Denies system reviewed and no additional complaints, except as documented and Reports as per HPI Cardiovascular: Reports as per HPI, Reports no additional cardiovascular complaints, Denies acrocyanosis, Denies cool extremities, Denies chest pain, Denies leg edema, Denies lightheadedness, Denies palpitations and Denies dyspnea Respiratory: Reports as per HPI, Denies no additional respiratory complaints and Denies dyspnea Gastrointestinal: Reports as per HPI and Denies no additional gastrointestinal complaints Genitourinary: Reports no additional male genitourinary complaints and Reports as per HPI Musculoskeletal: Reports no additional musculoskeletal complaints and Reports as per HPI Skin/Breast: Reports system reviewed and no additional complaints, except as docu Reports system reviewed and no additional complaints, except as documented and Reports as per HPI Psychiatric: Reports no additional psychiatric complaints and Reports as per HPI Endocrine: Reports no additional endocrine complaints, Reports as per HPI and Denies palpitations Hematologic/Lymphatic: Reports no additional hematologic/lymphatic complaints and Reports as per HPI Allergic/Immunologic: Reports no additional allergic/immunologic complaints and Reports as per HPI Physical Exam Vital Signs: Last Vital Signs Temp 97.6 F 12/09/23 07:54 Pulse 52 12/09/23 07:54 Resp 18 12/09/23 07:54 BP 137/63 12/09/23 07:54 Pulse Ox 94 12/09/23 07:54 O2 Del Method Room Air 12/09/23 07:54 BMI result Body Mass Index 33.2 Const General: comfortable and no acute distress Orientation/consciousness: patient oriented x3 HEENT Other: Unremarkable Head: Yes normal to inspection Neck Neck: Yes normal visual inspection Chest Chest palpation & inspection: normal inspection of the chest Resp Auscultation: clear to auscultation bilaterally Cardio Palpation: normal PMI Heart sounds: S1 normal heart sound present, S2 normal heart sound present, no gallops, no murmurs and no rubs GI Palpation (GI): Soft to palpation Back/Spine/Pelvis Other: unremarkable Skin General skin exam: no rashes or lesions noted Neuro General: patient oriented x3 Extrem General: Yes normal to inspection Psych Mental Status: mental status grossly normal Objective Labs and Meds 12/07/23 08:48 12/07/23 08:48 Lab results: Laboratory Results - last 24 hr 12/09/23 06:42 Hold Purple Top SEE NOTE PT 27.9 H INR 2.4 H Progress Note: A&P Assessment and plan (1) Atrial fibrillation with slow ventricular response: Status: Acute (2) HTN (hypertension): Status: Acute (3) Cyst of epididymis: Status: Acute Plan Clinically, no symptoms or signs of any decompensation related to the atrial fibrillation with slow ventricular rate. Likely it is a long-term issue. At this time, there is no absolute indication for a pacemaker. He does not have any prolonged pauses, asystole, profound bradycardia, and most importantly lack of symptoms. In fact, states that when he is up and about his heart rate does go up. 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 Echocardiogram shows preserved LV function, LVEF 60% and increased right ventricular size. Atria are dilated. Overall, he can be discharged from cardiac standpoint. Further management in the outpatient setting. Blood pressure also seems better today. With regard to scrotal swelling, not clear what kind of surgery he needs. If it is just under local, should be able to proceed. Otherwise, he will need to have formal clearance through his own exhibition specialist and indication for pacer decided then. Discussed in detail with at bedside as well as son over the phone. Time Spent With Patient Time: Total time managing care of this patient today 47 minutes. This includes time spent in review of chart, laboratory data, imaging studies, review of telemetry, counseling patient, family, discussion with hospitalist, RN, documentation, coordination of care. Progress Note: Quality Stroke Does the patient have a stroke diagnosis?: No Procedures Date of Service Date of Service: 12/09/23
[2023-12-09 11:19] VITALS: BP 121/56; PULSE 53; RESP 18; TEMP 36.4; O2SAT 95
--- NOTE | 2023-12-09 12:11 | PM.DS ---
DS: Providers Provider Date of Service: 12/09/23 Date of admission: 12/07/23 11:29 Date of discharge: 12/09/23 Primary care physician: Bert Harman MD Consults: 12/07/23 11:29 Consult to Cardiology Routine Consulting Provider: [facility] Reason for consultation: a. fib with bradycardia in the 30s-40s 12/08/23 10:42 Consult to Urology Routine Consulting Provider: [facility] Reason for consultation: testicular swelling Attending physician on discharge: Александр Herron Discharging clinician: Александр Herron DS: Diagnosis Discharge Diagnosis (1) Atrial fibrillation with slow ventricular response: Status: Acute (2) HTN (hypertension): Status: Acute (3) Cyst of epididymis: Status: Acute DS: Summary Hospital Course Hospital Course: 83-year-old male with a past medical history of BPH and bladder outlet obstruction, AFib on Coumadin and not on any rate control drugs, hyperlipidemia who presented to the emergency room for evaluation of left testicular swelling. It is unclear how long this has been ongoing but, according to the who is bedside, the patient 1st reported this about 1 week prior to arrival to the ED. at that point the patient was given a follow-up appointment with Urology later this month. However today they decided to come to the emergency room for further evaluation. There has been no changes in size, no fevers or chills, no erythema. There is no bleeding or drainage. The patient reports an increase in swelling while walking/standing which improves with lying in the supine position. However, on arrival to the emergency room the patient was noted to be bradycardic. He was placed on the monitor and an EKG was completed which showed AFib with slow ventricular response with the heart rate dipping down into the 30s. The patient has remained asymptomatic throughout. He denies any chest pain or shortness of breath. He denies any dizziness or lightheadedness. There are no reports of syncopal episodes. In regards to his AFib, he is on Coumadin but is not on any rate-controlling drugs. Given his persistent bradycardia, the patient has been requested for hospitalization. The patient is seen and examined in the emergency room around 11:15. He does not appear to be in any distress and denies any current complaints. His and son are at bedside who helped translate and corroborate the story. Hospital course: 83 yo M who presented to ED for the evaluation of L testicular swelling and was noted to have a. fib with slow ventricular response- further workup testicular/ultrsound showed Large left epididymal head cyst ( seen by urology recomended outpatient follow up). afib with slow rate for which seen by cardiology-Clinically, no symptoms or signs of any decompensation related to the atrial fibrillation with slow ventricular rate. thouh to be Likely it is a long-term issue.Echocardiogram shows preserved LV function, LVEF 60% and increased right ventricular size. Atria are dilated. 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 plan: Follow-up with urology for epididymal cyst. Follow-up with Cardiology for AFib follow-up. Above management discussed with the patient detail length he understand and in agreement with the above plan, time spent 40 minute. Time Attestation Total time managing care of this patient today: 40 mintues. Discharge Coordination Time (in mins): 40 min Quality: Safe Use of Opioids Does Pt have an Active Cancer Diagnosis on the Problem List?: No Quality: Stroke Does the patient have a stroke diagnosis?: No Physical Exam Vital Signs: Vital Signs: Last Vital Signs Temp 97.6 F 12/09/23 11:19 Pulse 53 12/09/23 11:19 Resp 18 12/09/23 11:19 BP 121/56 L 12/09/23 11:19 Pulse Ox 95 12/09/23 11:19 O2 Del Method Room Air 12/09/23 11:19 BMI result Body Mass Index 33.2 Appearance: Alert.? Oriented X3.? cvs: irregular rythem, [id number] . res: clear to auscultation ,no rhonchii or wheezing abd: no rebound or guarding ,nt, bs present. ext pulses present , no cyanosis. neuro: axo3 , nonfocal. DS: Data Data Completed and Pending Labs on day of discharge: Laboratory Results - last 24 hr 12/09/23 06:42 Hold Purple Top SEE NOTE PT 27.9 H INR 2.4 H Imaging Chest x-ray: Radiologist's impression: ITS Impressions Scrotum Ultrasound 12/07/23 09:07 IMPRESSION: 1. No suspicious intratesticular mass. 2. Large left epididymal head cyst 288 mL. 3. Heterogeneous right testicle without evidence of focal lesion. 4. Echogenic foci in the right testicle probably punctate calcifications. Electronically signed by: Gabriel Handley MD 12/07/2023 10:29 AM EDT Discharge Plan Discharge Anticipated Discharge Date/Time: 12/09/23 12:03 Patient Disposition: Home, Self-Care Discharge Diagnosis: afib ,testicular (epididymal cyst) Referrals: Vadim Kidd MD [Physician] - 1 Week Bert Harman MD [Primary Care Provider] - 1 Week Discharge Medications: Continued finasteride 5 mg tablet 5 mg PO DAILY 90 Days Qty: 90 3RF acetaminophen 325 mg Tablet 650 mg PO Q4H PRN (Reason: Headache, Fever Or Pain) cyanocobalamin (vitamin B-12) [Dodex] 1,000 mcg/mL Solution 1,000 mcg IM Q30D lisinopril 10 mg tablet 10 mg PO DAILY warfarin 5 mg Tablet 7.5 mg PO MO@1800 simvastatin 10 mg tablet 10 mg PO BEDTIME warfarin 5 mg tablet 5 mg PO SUTUWETHFRSA@1800 terazosin 10 mg capsule 10 mg PO BEDTIME 90 Days Qty: 90 3RF Discharge Orders: Discharge Order (Routine); Ordered 12/09/23 Ordered By: Александр Herrno Diet: Advance to usual diet Activity on Discharge: As tolerated Stand Alone Forms: Patient Portal Discharge page Print Language: Serbian Care Plan Goals: 83 yo M who presented to ED for the evaluation of L testicular swelling and was noted to have a. fib with slow ventricular response- further workup testicular/ultrsound showed Large left epididymal head cyst ( seen by urology recomended outpatient follow up). afib with slow rate for which seen by cardiology-Clinically, no symptoms or signs of any decompensation related to the atrial fibrillation with slow ventricular rate. thouh to be Likely it is a long-term issue.Echocardiogram shows preserved LV function, LVEF 60% and increased right ventricular size. Atria are dilated. 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 Health Concerns: as above. Plan of Treatment: as above. Assessment: as above. Discharge Date/Time: 12/09/23 12:48
--- NOTE | 2023-12-09 12:32 | MHC.CM.PN ---
Patient has been medically cleared for dc to home today, self care.
== END 2023-12-09 12:48 | disposition home or self-care (01) ==
LOC: HO.ED 11:11 → HO.EDOVER 11:32 → HO.IMC 17:21
PROVIDERS: Nurse Practitioner Family; Admitting Provider Family Medicine; Emergency Provider Emergency Medicine; PCP Internal Medicine; Visit Provider Internal Medicine
DX: I48.19 Other persistent atrial fibrillation (principal); I10 Essential (primary) hypertension; N50.3 Cyst of epididymis; N50.89 Other specified disorders of the male genital organs; E78.5 Hyperlipidemia, unspecified; R00.1 Bradycardia, unspecified; Z79.899 Other long term (current) drug therapy; Z79.01 Long term (current) use of anticoagulants; Z87.442 Personal history of urinary calculi
CPT/HCPCS: 36415; 76870; 80053; 81001; 85025; 85610; 93005; 93306; 93975; 96374; 99222; 99285; J0360

== ENCOUNTER 2023-12-07 11:29 | Outpatient (BNV) | payer MEDICARE, SELFPAY | END 2023-12-08 10:00 | PROVIDERS: Admitting Provider Family Medicine; Emergency Provider Emergency Medicine; PCP Internal Medicine; Visit Provider Internal Medicine | DX: I35.8 Other nonrheumatic aortic valve disorders (principal); I34.81 Nonrheumatic mitral (valve) annulus calcification; I36.1 Nonrheumatic tricuspid (valve) insufficiency; I27.20 Pulmonary hypertension, unspecified | CPT/HCPCS: 93306 ==

== ENCOUNTER → 2023-12-07 11:29 | Outpatient (BNV) | payer MEDICARE, SELFPAY | PROVIDERS: Admitting Provider Family Medicine; Emergency Provider Emergency Medicine; PCP Internal Medicine; Visit Provider Urology | DX: N50.3 Cyst of epididymis (principal) | CPT/HCPCS: 99222 ==

== ENCOUNTER → 2023-12-07 11:29 | Outpatient (BNV) | payer MEDICARE, SELFPAY | PROVIDERS: Admitting Provider Family Medicine; Emergency Provider Emergency Medicine; PCP Internal Medicine; Visit Provider Family Medicine | DX: I48.91 Unspecified atrial fibrillation (principal); I10 Essential (primary) hypertension; N50.3 Cyst of epididymis | CPT/HCPCS: 99223; 99232; 99239 ==

== ENCOUNTER → 2023-12-07 11:29 | Outpatient (BNV) | payer MEDICARE, SELFPAY | PROVIDERS: Admitting Provider Family Medicine; Emergency Provider Emergency Medicine; PCP Internal Medicine; Visit Provider Internal Medicine | DX: I48.91 Unspecified atrial fibrillation (principal); I10 Essential (primary) hypertension; N50.3 Cyst of epididymis | CPT/HCPCS: 93010; 99223; 99233 ==

== ENCOUNTER 2023-12-23 09:26 | Outpatient (AMB) | payer MEDICARE, SELFPAY ==
--- NOTE | 2023-12-23 09:39 | A.OFFVIS_ITS ---
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 He is a patient of Dr Harman. He is seen for the following urologic conditions. - lower urinary tract symptoms Recent ER visit with painful prostate Left testicular swelling Ultrasound shows large epididymal cyst over 250 cc Recommend office drainage with sclerotherapy Will need to hold Coumadin for 2-3 days Lower Urinary Tract Symptoms: Here with his - She is translating Romansh for me Twelve month review Continues with combination therapy terazosin and finasteride Effective bladder emptying with reasonable stream Current visit is for further evaluation of, predominate obstructive symptoms. Current treatment includes 11/10 , medication, alpha roland, terazosin 2mg 12/10 , medication, alpha roland, terazosin 10mg add finasteride 06/11 trial stopping terazosin failed Prostate Symptom Score Moderate (9-19), Bother 4. Symptoms include 11/10 incomplete emptying, intermittency, weak stream, straining, nocturia (>2), and are progressing 12/10 , weak stream, nocturia (>2), and are stable 06/11 , incomplete emptying, weak stream, nocturia (>2), and are improving. Results from testing include cystoscopy Trilobar hypertrophy 12/10 Prior Prostate Score moderate. PSA PSA 11/10 4.8, 05/11 2.3, 05/12 2.3, 08/16 1.65, 08/17 1.9 Prostate volume 75gm US 11/10. [facility] Medical History (Updated 01/07/24 @ 13:59 by Vadim Kidd MD) HTN (hypertension) History of kidney stones Weak urinary stream Bladder outlet obstruction Nocturia Weak urinary stream Bladder outlet obstruction Nocturia Family History (Updated 12/08/23 @ 11:48 by Dmitri Diane MD) Father No problems noted. Mother No problems noted. Social History Household Members: Spouse Housing: House Do you presently have visiting nurse or other home services: No Patient Tobacco Use Status: Tobacco use Unknown Second Hand Smoke Exposure: No service: No Review of Systems Const Denies chills and Denies fever(s) Card Reports no additional complaints and Denies syncope Resp Denies cough GI Denies abdominal pain and Denies heartburn Reports as per HPI and Denies change in libido Neuro Denies syncope Psych Denies change in libido Endo Denies change in libido Physical Exam Const General: cooperative, healthy appearing, comfortable and no acute distress Orientation/consciousness: patient oriented x3 HEENT Face and sinus: Yes normal facial exam Mouth: moist mucous membranes Neck Neck: Yes normal visual inspection, Yes full ROM and Yes trachea midline Chest Chest palpation & inspection: normal inspection of the chest Resp Effort & Inspection: normal respiratory effort, able to speak in complete sentences and no respiratory distress GI Inspection: Yes normal to inspection Back/Spine/Pelvis Cervical Spine: normal cervical lordosis Thoracic/Lumbar Spine: thoracic and lumbar spine normal to inspection Skin General skin exam: no rashes or lesions noted Neuro General: patient oriented x3, gait normal, tone normal and moves all extremities Extrem General: Yes normal to inspection and Yes capillary refill normal Office Procedures Post Void Residual Post Residual Void Post Void Residual (PVR): 0 [id number]-Yvyk Void Residual by ultrasound Assessment & Plan Assessment & Plan (1) Cyst of epididymis: Code(s): N50.3 - Cyst of epididymis Category: Medical Plan Plan epididymal cyst drainage Orders: Orders AMB Post Void Residual by ultrasound 12/23/23 N32.0 - Bladder-neck obstruction Patient Instructions: Imaging studies, laboratory and physical exam results were discussed and reviewed in detail. No major barriers to patient understanding were identified. An opportunity to ask questions regarding the treatment plan was provided. All questions were answered. The patient expressed understanding and agreement with the above treatment plan. The patient is aware they should contact our office by phone for worsening of their current condition or the appearance of new urologic symptoms. Compliance is encouraged with any medications and followup testing that is ordered. It is a privilege to participate in the urologic care of your patient. If you have any questions or concerns regarding treatment for the above conditions, or other urologic issues, please do not hesitate to contact me. The office telephone contact is [phone]. This note is constructed using voice recognition software. While every effort has been made to ensure accuracy layup worker errors may have been included. Yours sincerely, Dr Vadim Kidd MD, [facility] - Urology Providers of Expert, Compassionate Care for the Genitourinary System Coding Level of Care Code Est Pt Level 3 (15530) Diagnoses Cyst of epididymis N50.3 CPT Codes Post Residual Void - PVR CPT Code: 32429-Xuac Void Residual by ultrasound ([id number])
== END 2023-12-23 10:35 | disposition home or self-care (01) ==
LOC: HO.HUSH 09:27
PROVIDERS: PCP Internal Medicine; Visit Provider Urology
DX: N50.3 Cyst of epididymis (principal)
CPT/HCPCS: 99213

== ENCOUNTER → 2023-12-23 09:26 | Outpatient (BNVA) | payer MEDICARE, SELFPAY | PROVIDERS: PCP Internal Medicine; Visit Provider Urology | DX: N50.3 Cyst of epididymis (principal); N32.0 Bladder-neck obstruction; Z79.01 Long term (current) use of anticoagulants | CPT/HCPCS: 51798; 99212 ==

== ENCOUNTER 2024-01-07 10:54 | Outpatient (AMB) | payer MEDICARE, SELFPAY ==
--- NOTE | 2024-01-07 11:40 | MHC.OFFVIS ---
Intake Visit Reasons: drainage left epididymal cyst Allergies No Known Allergies Allergy (Verified 12/23/23 09:59) HPI Comments Details: All QUIÑONEZ is a very pleasant Togolese male. He is a patient of Dr Harman. He is seen for the following urologic conditions. - lower urinary tract symptoms - left hydrocele Here for left testicular hydrocele aspiration See note for detail 2 week follow-up nursing to review for recurrence Lower Urinary Tract Symptoms: Here with his - She is translating Togolese for me Twelve month review Continues with combination therapy terazosin and finasteride Effective bladder emptying with reasonable stream Current visit is for further evaluation of, predominate obstructive symptoms. Current treatment includes 11/10 , medication, alpha roland, terazosin 2mg 12/10 , medication, alpha roland, terazosin 10mg add finasteride 06/11 trial stopping terazosin failed Prostate Symptom Score Moderate (9-19), Bother 4. Symptoms include 11/10 incomplete emptying, intermittency, weak stream, straining, nocturia (>2), and are progressing 12/10 , weak stream, nocturia (>2), and are stable 06/11 , incomplete emptying, weak stream, nocturia (>2), and are improving. Results from testing include cystoscopy Trilobar hypertrophy 12/10 Prior Prostate Score moderate. PSA PSA 11/10 4.8, 05/11 2.3, 05/12 2.3, 08/16 1.65, 08/17 1.9 Prostate volume 75gm US 11/10. [facility] Medical History (Updated 01/07/24 @ 13:59 by Vadim Kidd MD) HTN (hypertension) History of kidney stones Weak urinary stream Bladder outlet obstruction Nocturia Weak urinary stream Bladder outlet obstruction Nocturia Family History (Updated 12/08/23 @ 11:48 by Dmitri Diane MD) Father No problems noted. Mother No problems noted. Social History Household Members: Spouse Housing: House Do you presently have visiting nurse or other home services: No Patient Tobacco Use Status: Tobacco use Unknown Second Hand Smoke Exposure: No service: No Review of Systems Const Denies chills and Denies fever(s) Card Reports no additional complaints and Denies syncope Resp Denies cough GI Denies abdominal pain and Denies heartburn Reports as per HPI and Denies change in libido Neuro Denies syncope Psych Denies change in libido Endo Denies change in libido Physical Exam Const General: cooperative, healthy appearing, comfortable and no acute distress Orientation/consciousness: patient oriented x3 HEENT Face and sinus: Yes normal facial exam Mouth: moist mucous membranes Neck Neck: Yes normal visual inspection, Yes full ROM and Yes trachea midline Chest Chest palpation & inspection: normal inspection of the chest Resp Effort & Inspection: normal respiratory effort, able to speak in complete sentences and no respiratory distress GI Inspection: Yes normal to inspection Back/Spine/Pelvis Cervical Spine: normal cervical lordosis Thoracic/Lumbar Spine: thoracic and lumbar spine normal to inspection Skin General skin exam: no rashes or lesions noted Neuro General: patient oriented x3, gait normal, tone normal and moves all extremities Extrem General: Yes normal to inspection and Yes capillary refill normal Office Procedures Procedure Thyroid Biopsy Procedural Documentation: PreOperative Diagnosis: Left hydrocele Post Operative Diagnosis: Left hydrocele Procedure: Drainage of hydrocele with sclerotherapy in office Surgeon: Dr Vadim Kidd Anesthesia: Local Indications for procedure: Persistent hydrocele Procedure: Informed consent was verified and site confirmed The testicle was prepped using Betadine swab stick 10 cc 1% lidocaine placed in cord for cord block Testicle was elevated and 18 gauge Angiocath placed for drainage of hydrocele fluid Three hundred sixty cc of fluid removed 20 cc of 200 mg doxycycline mixed with 1% lidocaine injected for sclerotherapy Procedure tolerated CPT 56192, 34484 Assessment & Plan Assessment & Plan (1) Hydrocele: Code(s): N43.3 - Hydrocele, unspecified Category: Medical Plan Two week follow-up nursing hydrocele Patient Instructions: Imaging studies, laboratory and physical exam results were discussed and reviewed in detail. No major barriers to patient understanding were identified. An opportunity to ask questions regarding the treatment plan was provided. All questions were answered. The patient expressed understanding and agreement with the above treatment plan. The patient is aware they should contact our office by phone for worsening of their current condition or the appearance of new urologic symptoms. Compliance is encouraged with any medications and followup testing that is ordered. It is a privilege to participate in the urologic care of your patient. If you have any questions or concerns regarding treatment for the above conditions, or other urologic issues, please do not hesitate to contact me. The office telephone contact is [phone]. This note is constructed using voice recognition software. While every effort has been made to ensure accuracy nuclear monitoring technician errors may have been included. Yours sincerely, Dr Vadim Kidd MD, [facility] - Urology Providers of Expert, Compassionate Care for the Genitourinary System Coding Level of Care Code Procedure Only Diagnoses Hydrocele N43.3
== END 2024-01-07 12:20 | disposition home or self-care (01) ==
PROVIDERS: PCP Internal Medicine; Visit Provider Urology
DX: N43.3 Hydrocele, unspecified (principal)
CPT/HCPCS: 55000

== ENCOUNTER → 2024-01-07 10:54 | Outpatient (BNVA) | payer MEDICARE, SELFPAY | PROVIDERS: PCP Internal Medicine; Visit Provider Urology | DX: N43.3 Hydrocele, unspecified (principal) | CPT/HCPCS: 55000 ==

== ENCOUNTER 2024-01-27 10:27 | Outpatient (AMB) | payer MEDICARE, SELFPAY ==
--- NOTE | 2024-01-27 10:35 | MHC.OFFVIS ---
Intake Visit Reasons: Hydrocele Intake Note: Patient is present for HYDROCELE Urology Medication:FINASTERIDE,TERAZOSIN,VITAMIN B12 Antibiotic Allergy:NONE Blood Thinner:WARFAIR Rn Hematology Required: No Allergies No Known Allergies Allergy (Verified 01/27/24 10:36) HPI Comments Details: All QUIÑONEZ is a very pleasant Citizen Of [place] male. He is a patient of Dr Harman. He is seen for the following urologic conditions. - lower urinary tract symptoms - left hydrocele Recurrent hydrocele aspiration 160 cc removed Does report weakness of stream On maximum alpha-roland May need prostate procedure Review in 2 weeks Office Procedure performed PreOperative Diagnosis: Left hydrocele Post Operative Diagnosis: Left hydrocele Procedure: Drainage of hydrocele with sclerotherapy in office Surgeon: Dr Vadim Kidd Anesthesia: Local Indications for procedure: Persistent hydrocele Procedure: Informed consent was verified and site confirmed The testicle was prepped using Betadine swab stick 10 cc 1% lidocaine placed in cord for cord block Testicle was elevated and 18 gauge Angiocath placed for drainage of hydrocele fluid 160 cc of fluid removed 20 cc of 200 mg doxycycline mixed with 1% lidocaine injected for sclerotherapy Procedure tolerated CPT 76770, 00088 Lower Urinary Tract Symptoms: Here with his - She is translating Citizen [place] for me Twelve month review Continues with combination therapy terazosin and finasteride Effective bladder emptying with reasonable stream Current visit is for further evaluation of, predominate obstructive symptoms. Current treatment includes 11/10 , medication, alpha roland, terazosin 2mg 12/10 , medication, alpha roland, terazosin 10mg add finasteride 06/11 trial stopping terazosin failed Prostate Symptom Score Moderate (9-19), Bother 4. Symptoms include 11/10 incomplete emptying, intermittency, weak stream, straining, nocturia (>2), and are progressing 12/10 , weak stream, nocturia (>2), and are stable 06/11 , incomplete emptying, weak stream, nocturia (>2), and are improving. Results from testing include cystoscopy Trilobar hypertrophy 12/10 Prior Prostate Score moderate. PSA PSA 11/10 4.8, 05/11 2.3, 05/12 2.3, 08/16 1.65, 08/17 1.9 Prostate volume 75gm US 11/10. [facility] Medical History (Updated 01/07/24 @ 13:59 by Vadim Kidd MD) HTN (hypertension) History of kidney stones Weak urinary stream Bladder outlet obstruction Nocturia Weak urinary stream Bladder outlet obstruction Nocturia Family History (Updated 12/08/23 @ 11:48 by Dmitri Diane MD) Father No problems noted. Mother No problems noted. Social History Household Members: Spouse Housing: House Do you presently have visiting nurse or other home services: No Patient Tobacco Use Status: Tobacco use Unknown Second Hand Smoke Exposure: No service: No Review of Systems Const Denies chills and Denies fever(s) Card Reports no additional complaints and Denies syncope Resp Denies cough GI Denies abdominal pain and Denies heartburn Reports as per HPI and Denies change in libido Neuro Denies syncope Psych Denies change in libido Endo Denies change in libido Physical Exam Const General: cooperative, healthy appearing, comfortable and no acute distress Orientation/consciousness: patient oriented x3 HEENT Face and sinus: Yes normal facial exam Mouth: moist mucous membranes Neck Neck: Yes normal visual inspection, Yes full ROM and Yes trachea midline Chest Chest palpation & inspection: normal inspection of the chest Resp Effort & Inspection: normal respiratory effort, able to speak in complete sentences and no respiratory distress GI Inspection: Yes normal to inspection Back/Spine/Pelvis Cervical Spine: normal cervical lordosis Thoracic/Lumbar Spine: thoracic and lumbar spine normal to inspection Skin General skin exam: no rashes or lesions noted Neuro General: patient oriented x3, gait normal, tone normal and moves all extremities Extrem General: Yes normal to inspection and Yes capillary refill normal Assessment & Plan Assessment & Plan (1) Nocturia: Code(s): R35.1 - Nocturia Category: Medical (2) Hydrocele: Code(s): N43.3 - Hydrocele, unspecified Category: Medical Plan Two week follow-up Medications: Refilled finasteride 5 mg PO DAILY 90 days 90 tabs 3RF N32.0 - Bladder-neck obstruction Patient Instructions: Imaging studies, laboratory and physical exam results were discussed and reviewed in detail. No major barriers to patient understanding were identified. An opportunity to ask questions regarding the treatment plan was provided. All questions were answered. The patient expressed understanding and agreement with the above treatment plan. The patient is aware they should contact our office by phone for worsening of their current condition or the appearance of new urologic symptoms. Compliance is encouraged with any medications and followup testing that is ordered. It is a privilege to participate in the urologic care of your patient. If you have any questions or concerns regarding treatment for the above conditions, or other urologic issues, please do not hesitate to contact me. The office telephone contact is [phone]. This note is constructed using voice recognition software. While every effort has been made to ensure accuracy yard pipe grader errors may have been included. Yours sincerely, Dr Vadim Kidd MD, [facility] - Urology Providers of Expert, Compassionate Care for the Genitourinary System Coding Level of Care Code Procedure Only Diagnoses Nocturia R35.1 Hydrocele N43.3
== END 2024-01-27 11:21 | disposition home or self-care (01) ==
PROVIDERS: PCP Internal Medicine; Visit Provider Urology
DX: N43.3 Hydrocele, unspecified (principal)
CPT/HCPCS: 49185; 55000

== ENCOUNTER → 2024-01-27 10:27 | Outpatient (BNVA) | payer MEDICARE, SELFPAY | PROVIDERS: PCP Internal Medicine; Visit Provider Urology | DX: N43.3 Hydrocele, unspecified (principal); R39.12 Poor urinary stream; R35.1 Nocturia; N32.0 Bladder-neck obstruction | CPT/HCPCS: 49185; 55000 ==

== ENCOUNTER 2024-03-26 13:11 | Outpatient (AMB) | payer MEDICARE, SELFPAY ==
--- OUTSIDE RECORDS SUMMARY | 2024-03-26 13:27 | XMS_ITS | Encounter Summary ---
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 Social History Tobacco Use Types Packs/Day Years Used Date Smoking Tobacco: Former Cigarettes 1 10 0 02/25/1956 - 02/24/1966 Smokeless Tobacco: Never Alcohol Use Standard Drinks/Week Comments Yes 0 (1 standard drink = 0.6 oz pur e alcohol) Rarely Sex and Gender Information Value Date Recorded Sex Assigned at Not on file Gender Identity Not on file Sexual Orientation Not on file Job Start Date Occupation Industry Not on file Not on file Not on file documented as of this encounter Plan of Treatment Upcoming Encounters Date Type Department Care Team (Late st Contact Info) Description 03/31/2024 9:00 AM EST Anticoagulation - Warfarin Visit Coumadin [address] [phone] 04/06/2024 9:50 AM EST Consult [facility] [address] [place] [id number] Narendra Noel MD [address] [place] [address] 04/21/2024 10:40 AM EST Office Visit [facility] [address] [facility] [address] [place] [address] Jus Wilson NP [address] [place] [address] 08/04/2024 4:00 PM EDT Office Visit [facility] [address] [phone] Bert Harman MD [address] [place] [address] 11/23/2024 9:30 AM EDT Office Visit Endocrinology [address] [phone] Julián Sosa MD [address] [place] [phone] documented as of this encounter Procedures Procedure Name Priority Date/Time Associated Diagnosis Comments POC PROTIME INR BLOOD Routine 03/03/2024 Atrial fibrillation, unspecified type (CMS/HCC) custodial (current) use of anticoagulants documented in this encounter Results * POC Protime INR Blood (03/03/2024) Lot Number INR POC 2.9 Prothrombin Time POC Exp Date Blood 03/03/2024 Historical Provider POINT OF CARE BRANT T ENTER/EDIT ORDERABLES documented in this encounter Visit Diagnoses Diagnosis Atrial fibrillation, unspecified type (CMS/HCC)- 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
--- OUTSIDE RECORDS SUMMARY | 2024-03-26 13:27 | XMS_ITS | Clinical Summary ---
Author Organization [address] [place] [address] Address [address] [place] [address] Phone Care Team Providers Care Recycling Center Operator Name Role Phone Bert Harman MD Primary Care Provider [phone] Allergies No known active allergies Medications Medication Sig Dispensed Refills Start Date End Date Status MEN'S MULTI-VITAMIN ORAL Take 1 tablet by mouth 1 (one) time each day. 01/23/2007 Active warfarin (COUMADIN) 5 mg tablet Managed by Yessi 03/03/2023 Active terazosin (HYTRIN) 10 mg capsule Take 1 capsule (10 mg total) by mouth. 06/11/2017 Active finasteride (PROSCAR) 5 mg tablet Take 1 tablet (5 mg total) by mouth 1 (one) time each day. 02/28/2017 Active lisinopriL (PRINIVIL,ZESTRIL) 10 mg tablet Take 1 tablet (10 mg total) by mouth 1 (one) time each day. Take 1 tablet (10 mg total) by mouth 1 (one) time each day. 30 each 2 02/10/2024 05/10/2024 Active simvastatin (ZOCOR) 10 mg tablet Take 1 tablet (10 mg total) by mouth at bedtime. 30 each 2 02/10/2024 05/10/2024 Active cyanocobalamin 2,000 mcg tablet Take 1 tablet (2,000 mcg total) by mouth 1 (one) time each day. 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 Tam, surveillance echocardiogram of aortic aneurysm is no longer warranted. CKD (chronic kidney disease), stage III 01/13/20 18 Assessment & Plan (02/10/2024 9:59 AM EST): Orders: Basic metabolic panel; Future Primary hypertension 09/29/2009 Assessment & Plan (01/14/2024 8:36 AM EST): Slightly hypertensive at today's visit. The patient's does have blood pressure records with her which reveal blood pressures are controlled at home, average systolic is in the 120s to 130s. Patient has been asked to continue current medication regimen and continue to check blood pressures at home and write them down. Dyslipidemia 09/29/2009 Assessment & Plan (01/14/2024 8:36 AM EST): Lipid panel from 09/01/2023 revealed an LDL of 71. Glyceride of 64. Would like patient ideally to get this number below 70, he is quite close, should continue to work on his diet and exercise. Iron deficiency 10/25/2008 Obesity, unspecified 12/22/2007 Atrial fibrillation 02/05/2007 Assessment & Plan (02/10/2024 9:59 AM EST): Assessment & Plan (01/14/2024 8:36 AM EST): Patient is in A-fib with slow ventricular response at the appointment today. He has history of this. Would like to update a 48-hour Holter monitor. Depending on the results of that we will refer to EP to discuss potential pacemaker. Patient has had no issues with abnormal bleeding. He has a [id number] score of 4 and should remain anticoagulated. 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; Stage 3 chronic kidney disease, unspecified whether stage 3a or 3b CKD (CMS/HCC); Atrial fibrillation, unspecified type (CMS/HCC); Thoracic aortic aneurysm without rupture, unspecified part (CMS/HCC); Routine general medical examination at a health care facility; Thyroid nodule 02/04/2024 10:45 AM EST Clinical Support Adult [address] [phone] B12 deficiency (Primary Dx) 02/04/2024 9:30 AM EST Anticoagulation - Warfarin Visit [address] [phone] Atrial fibrillation, unspecified type (CMS/HCC) (Primary Dx); [facility] (current) use of anticoagulants 01/30/2024 Telephone [facility] Cardiology [facility] [address] [place] [address] Sandy Whitley MA Results 01/14/2024 10:30 AM EST Anticoagulation - Warfarin Visit Coumadin [address] [phone] Atrial fibrillation, unspecified type (CMS/HCC) (Primary Dx) 01/14/2024 9:25 AM EST Ancillary Procedure [facility] Cardiology [facility] [address] [place] [address] Atrial fibrillation, unspecified type (CMS/HCC) 01/14/2024 7:40 AM EST Office Visit [facility] [address] [place] [address] Jus Wilson NP Atrial fibrillation, unspecified type (CMS/HCC) (Primary Dx); Dyslipidemia; Primary hypertension; Thoracic aortic aneurysm without rupture, unspecified part (CMS/HCC) 01/14/2024 Telephone [facility] [address] [place] [address] Jus Wilson NP 01/07/2024 8:00 AM EST Anticoagulation - Warfarin Visit Coumadin [address] [phone] Atrial fibrillation, unspecified type (CMS/HCC) (Primary Dx) 12/31/2023 9:30 AM EST Clinical Support Adult Medicine [address] [phone] B12 deficiency (Primary Dx) 12/31/2023 9:10 AM EST Anticoagulation - Other Visit (DOAC) Coumadin [address] [phone] Atrial fibrillation, unspecified type (CMS/HCC) (Primary Dx) 12/30/2023 Telephone Adult Medicine [address] [address] Bert Harman MD from Last 3 Months Immunizations Name Administration Dates Next Due Influenza trivalent, 0.5mL ( Fluzone High-dose) 65yo and older 12/04/2022,11/30/2021 Pneumococcal polysaccharide 23 valent (Pneumovax 23) 2yo and older 02/13/2007 Tdap Tetanus diptheria acell ular pertussis (Boostrix; Adacel) 7yo and older 01/14/2022,07/30/2011 Surgical History Surgery Date Site/Laterality Comments COLONOSCOPY 12/30/2005 PROCEDURE: ME COLONOSCOPY STOMA DX INCLUDING COLLJ SPEC SPX; COMMENT: Up to cecum, internal hemorrhoids ESOPHAGOGASTRODUODENOSCOPY 04/23/07 PROCEDURE: ME EGD TRANSORAL BIOPSY SINGLE/MULTIPLE; COMMENT: Gastritis body-bx:Chronic gastritis with eosinophils-H.Pilory+ (treated), SB-bx:Nl Medical History Medical History Date Comments Unspecified disorder of lipo id metabolism 12/22/2007 DX:Unspecified disorder of l ipoid metabolism Iron deficiency 10/25/2008 DX:Iron deficien cy HTN (hypertension) DX:HTN (hyper tension) History of tobacco abuse DX:Hist ory of tobacco abuse; COMMENT: 20 pack yrs Family History Medical History Relation Name Comments Other: lung problems Father at the age of 26, details unknown. Other: cancer Mother , unknown type , lived to be 90 Relation Name Status Comments Father Mother Social History Tobacco Use Types Packs/Day Years Used Date Smoking Tobacco: Former Cigarettes 1 10 0 02/25/1956 - 02/24/1966 Smokeless Tobacco: Never Tobacco Cessation:Counseling Given: Not Answered Alcohol Use Standard Drinks/Week Comments Yes 0 (1 standard drink = 0.6 oz pur e alcohol) Rarely Sex and Gender Information Value Date Recorded Sex Assigned at Not on file Gender Identity Not on file Sexual Orientation Not on file Job Start Date Occupation Industry Not on file Not on file Not on file Obstetrics History Last Filed Vital Signs Vital Sign Reading Time Taken Comments Blood Pressure 128/58 02/10/2024 9:22 AM EST Pulse 54 02/10/2024 9:22 AM EST Temperature 36 ??C (96.8 ??F) 02/10/2024 9:22 AM EST Respiratory Rate 02/10/2024 9:22 AM EST Oxygen Saturation 98% 02/10/2024 9:22 AM EST Inhaled Oxygen Concentration - - Weight 105 kg (231 lb) 02/10/2024 9:22 AM EST Height 172.7 cm (5' 8 ) 02/10/2024 9:22 AM EST Body Mass Index 35.12 02/10/2024 9:22 AM EST Plan of Treatment Upcoming Encounters Date Type Department Care Team (Late st Contact Info) Description 03/31/2024 9:00 AM EST Anticoagulation - Warfarin Visit Coumadin Clinic - [address] [phone] 04/06/2024 9:50 AM EST Consult [facility] - [address] [place] [address] Narendra Noel MD 300 [facility] [address] [place] [address] 04/21/2024 10:40 AM EST Office Visit [facility] Cardiology [facility] [address] [facility] 154 [place] [address] Jus Wilson NP [address] [place] [address] 08/04/2024 4:00 PM EDT Office Visit [facility] - [address] [phone] Bert Harman MD [address] [place] [address] 11/23/2024 9:30 AM EDT Office Visit Endocrinology - [address] [phone] Julián Sosa MD [address] [place] [address] Health Maintenance Due Date Last Done Comments COVID-19 Vaccine (#1) 09/09/1945 Zoster Vaccines (1 of 2) 1988 Pneumococcal Vaccine: 65+ Years (2 of 2 - PCV) 02/14/2008 02/13/2007 RSV Immunization Patients 60+ Years Old (1 - 1-dose 75+ series) 2013 Social Influencers of Health Screening 01/27/2022 Hypertension/CHF/CAD Annual BMP Blood Test 02/03/2022 Influenza Vaccine (#1) 2023 3, 11/30/2021, 12/12/2020, Additional history exists Depression Screening 02/09/2025 02/10/2024, 10/22/19 23 Falls Risk Assessment 02/09/2025 02/10/2024, 023 Medicare Annual Wellness Visit 02/09/2025 02/10/2024 Cholesterol Screening (Lipid Panel) 08/31/2028 09/01/2023, 01/31/2022 DTaP,Tdap,and Td Vaccines (3 - Td or Tdap) 01/15/2032 01/14/2022, 07/30/2011 HIB Vaccines Aged Out No longer eligi ble based on patient's age to complete this topic HPV Vaccines Aged Out No longer eligi ble based on patient's age to complete this topic Hepatitis A Vaccines Aged Out No long er eligible based on patient's age to complete this topic Hepatitis B Vaccines Aged Out No long er eligible based on patient's age to complete this topic IPV Vaccines Aged Out No longer eligi ble based on patient's age to complete this topic MMR Vaccines Aged Out No longer eligi ble based on patient's age to complete this topic Meningococcal ACWY Vaccine Aged Out N o longer eligible based on patient's age to complete this topic RSV Immunization Patients Under 20 months Aged Out No longer eligible based on patient's age to complete this topic Varicella Vaccines Aged Out No longer eligible based on patient's age to complete this topic Procedures Procedure Name Priority Date/Time Associated Diagnosis Comments POC PROTIME INR BLOOD Routine 03/03/2024 Atrial fibrillation, unspecified type (CMS/HCC) [facility]FP (current) use of anticoagulants HEMOGLOBIN A1C Routine 02/04/2024 8:08 AM EST Thoracic aortic aneurysm without rupture, unspecified part (CMS/HCC) Primary hypertension Atrial fibrillation, unspecified type (CMS/HCC) Bradycardia Iron deficiency B12 deficiency Dyslipidemia Obesity, unspecified Thyroid nodule Abnormal serum thyroid stimulating hormone (TSH) level CKD (chronic kidney disease), stage III (CMS/HCC) Abnormal thyroid biopsy History of tobacco abuse VITAMIN B12 Routine 02/04/2024 8:08 AM EST Thoracic aortic aneurysm without rupture, unspecified part (CMS/HCC) Primary hypertension Atrial fibrillation, unspecified type (CMS/HCC) Bradycardia Iron deficiency B12 deficiency Dyslipidemia Obesity, unspecified Thyroid nodule Abnormal serum thyroid stimulating hormone (TSH) level CKD (chronic kidney disease), stage III (CMS/HCC) Abnormal thyroid biopsy History of tobacco abuse POC PROTIME INR BLOOD Routine 02/04/2024 Atrial fibrillation, unspecified type (CMS/HCC) [facility]FP (current) use of anticoagulants EXTERNAL ULTRASOUND REPORT 01/16/2024 CARDIAC HOLTER MONITOR (REPORT GENERATED IN HOUSE) Routine 01/14/2024 8:45 AM EST Atrial fibrillation, unspecified type (CMS/HCC) ECG 12-LEAD Routine 01/14/2024 8:36 AM EST Atrial fibrillation, unspecified type (CMS/HCC) POC PROTIME INR BLOOD Routine 01/14/2024 Atrial fibrillation, unspecified type (CMS/HCC) POC PROTIME INR BLOOD Routine 01/07/2024 Atrial fibrillation, unspecified type (CMS/HCC) POC PROTIME INR BLOOD Routine 12/31/2023 Atrial fibrillation, unspecified type (CMS/HCC) from Last 3 Months Results * POC Protime INR Blood (03/03/2024) Only the most recent of5 resultswithin the time period is included. Lot Number INR POC 2.9 Prothrombin Time POC Exp Date Blood 03/03/2024 Historical Provider POINT OF CARE BRANT T ENTER/EDIT ORDERABLES * Hemoglobin A1c (02/04/2024 8:08 AM EST) Hemoglobin A1C 5.9 <6.5 % LAB CHEMISTRY METHOD 02/04/2024 11:25 AM EST [facility] Mean Bld Glu Estim. 123 mg/dL LAB CHEMISTRY METHOD 02/04/2024 11:25 AM EST [facility] Blood Venous blood specimen / Unknown Venipuncture / Unknown 02/04/2024 8:08 AM EST 02/04/2024 8:08 AM EST Bert Harman MD LAB BLOOD ORDERABLES [facility] [address] [place] [address], [place] [phone] * Vitamin B12 (02/04/2024 8:08 AM EST) Pathologist [facility] Vitamin B-12 406 250 - 900 pcg/mL LAB CHEMISTRY METHOD 02/04/2024 10:32 AM EST [facility] Blood Venous blood specimen / Unknown Venipuncture / Unknown 02/04/2024 8:08 AM EST 02/04/2024 8:08 AM EST Bert Harman MD LAB BLOOD ORDERABLES [facility] [address] [place] [address], [place] [phone] * External Ultrasound Report (01/16/2024) Anatomical Region Laterality Modality Ultrasound Provider [facility] US PROCEDURE S * CARDIAC HOLTER MONITOR (REPORT GENERATED IN HOUSE) (01/14/2024 8:45 AM EST) Anatomical Region Laterality Modality Cardiac Diagnost ic Narrative 01/26/2024 3:41 PM EST [facility] DIAGNOSTIC TESTING DEPARTMENT [address] [place] [address] TEL: FAX: Type of Test: 48 Hour Holter Monitor Date of Test: 01/14/2024 Ordering Provider: Jus Wilson NP Reason for Test: Atrial Fibrillation PVCA Grease Man Findings: ?? 1: Atrial Fibrillation noted throughout recording. 2: Ventricular rate range was 31-92 BPM with an average of 46 BPM. 3: Occasional PVCs. Rare couplets and one episode of ventricular trigeminy. 4: Rare pauses over 3 seconds, longest R-R was 4.0 seconds at 3:27 AM. 5: Diary returned with no symptoms noted. Impression: ?? Atrial fibrillation with predominantly slow ventricular response rate. ?? There was a 4-second pause occurring during presumably sleeping hours. Jus Wilson NP [facility] CARDIAC SERVICES PROCEDURES * ECG 12 lead (01/14/2024 8:36 AM EST) Ventricular Rate ECG 46 BPM GEMUSE Atrial Rate 227 BPM GEMUSE QRS Duration 104 ms GEMUSE Q-T Interval 500 ms GEMUSE QTc 437 ms GEMUSE R [place] 58 degrees GEMUSE T [place] 13 degrees GEMUSE ECG Interpretation Atrial fibrillation with slow ventricular response Incomplete right bundle branch block Abnormal ECG When compared with ECG of 16-JUN-2007 12:08, Atrial fibrillation has replaced Sinus rhythm Confirmed by SHAYY TAM ([id number]) on 01/14/2024 6:03:35 PM GEMUSE 01/14/2024 7:5 8 AM EST 01/14/2024 6:03 PM EST Jus Wilson NP ECG ORDERABLES GEMUSE from Last 3 Months Care Teams Recycling Center Operator Relationship Specialty Start Date End Date Bert Harman MD 4 [facility] [place] [address] PCP - General Internal Medicine 07/10/20
--- NOTE | 2024-03-26 13:40 | A.OFFVIS_ITS ---
Intake Visit Reasons: hydrocele follow up Intake Note: Patient is present for HYDEOCELE F/U Urology Medication:TERAZOSIN,FINASTERIDE,VITAMIN B12 Antibiotic Allergy:NONE Blood Thinner:WARFARIN [employer] Law Clerk Required: No Allergies No Known Allergies Allergy (Verified 03/26/24 13:42) HPI Comments Details: All QUIÑONEZ is a very pleasant [place] male. He is a patient of Dr Harman. He is seen for the following urologic conditions. - lower urinary tract symptoms - left hydrocele Six week follow-up left hydrocele drainage Mild bruising left side however slowly resolving Discomfort has resolved Six-month follow-up continue current medication Lower Urinary Tract Symptoms: Here with his - She is translating [place] for me Twelve month review Continues with combination therapy terazosin and finasteride Effective bladder emptying with reasonable stream Current visit is for further evaluation of, predominate obstructive symptoms. Current treatment includes 11/10 , medication, alpha roland, terazosin 2mg 12/10 , medication, alpha roland, terazosin 10mg add finasteride 06/11 trial stopping terazosin failed Prostate Symptom Score Moderate (9-19), Bother 4. Symptoms include 11/10 incomplete emptying, intermittency, weak stream, straining, nocturia (>2), and are progressing 12/10 , weak stream, nocturia (>2), and are stable 06/11 , incomplete emptying, weak stream, nocturia (>2), and are improving. Results from testing include cystoscopy Trilobar hypertrophy 12/10 Prior Prostate Score moderate. PSA PSA 11/10 4.8, 05/11 2.3, 05/12 2.3, 08/16 1.65, 08/17 1.9 Prostate volume 75gm US 11/10. [facility] Medical History (Updated 01/07/24 @ 13:59 by Vadim Kidd MD) HTN (hypertension) History of kidney stones Weak urinary stream Bladder outlet obstruction Nocturia Weak urinary stream Bladder outlet obstruction Nocturia Family History (Updated 12/08/23 @ 11:48 by Dmitri Diane MD) Father No problems noted. Mother No problems noted. Social History Household Members: Spouse Housing: House Do you presently have visiting nurse or other home services: No Patient Tobacco Use Status: Tobacco use Unknown Second Hand Smoke Exposure: No service: No Review of Systems Const Denies chills and Denies fever(s) Card Reports no additional complaints and Denies syncope Resp Denies cough GI Denies abdominal pain and Denies heartburn Reports as per HPI and Denies change in libido Neuro Denies syncope Psych Denies change in libido Endo Denies change in libido Physical Exam Const General: cooperative, healthy appearing, comfortable and no acute distress Orientation/consciousness: patient oriented x3 HEENT Face and sinus: Yes normal facial exam Mouth: moist mucous membranes Neck Neck: Yes normal visual inspection, Yes full ROM and Yes trachea midline Chest Chest palpation & inspection: normal inspection of the chest Resp Effort & Inspection: normal respiratory effort, able to speak in complete sentences and no respiratory distress GI Inspection: Yes normal to inspection Back/Spine/Pelvis Cervical Spine: normal cervical lordosis Thoracic/Lumbar Spine: thoracic and lumbar spine normal to inspection Skin General skin exam: no rashes or lesions noted Neuro General: patient oriented x3, gait normal, tone normal and moves all extremities Extrem General: Yes normal to inspection and Yes capillary refill normal Results AMB Urinalysis, Automated UA Leukoctes 0 Abdoul/uL Last Edit by GI Tejada on 03/26/24 14:35 UA Nitrite Negative Last Edit by GI Tejada on 03/26/24 14:35 UA Urobilinogen 0.2 mg/dL Last Edit by GI Tejada on 03/26/24 14:3 5 UA Protein 100 mg/dL Last Edit by GI Tejada on 03/26/24 14:35 UA pH 5.5 Last Edit by GI Tejada on 03/26/24 14:35 UA Blood 0 Douglas/uL Last Edit by GI Tejada on 03/26/24 14:35 UA Specific [place] 1.030 Last Edit by GI Tejada on 03/26/24 14: 35 UA Ketone Negative Last Edit by GI Tejada on 03/26/24 14:35 UA Bilirubin 1 mg/dL Last Edit by GI Tejada on 03/26/24 14:35 UA Glucose 0 mg/dL Last Edit by GI Tejada on 03/26/24 14:35 Results Reviewed Results Reviewed: Laboratory Last Values Urine pH (Auto) 5.5 03/26/24 14:34 Specific [place] (Auto) 1.030 03/26/24 14:34 Urine Protein (Auto) 100 mg/dL 03/26/24 14:34 Glucose (UA)(Auto) 0 mg/dL 03/26/24 14:34 Urine Ketones (Auto) Negative 03/26/24 14:34 Urine Blood (Auto) 0 Douglas/uL 03/26/24 14:34 Urine Nitrite (Auto) Negative 03/26/24 14:34 Urine Bilirubin (Auto) 1 mg/dL 03/26/24 14:34 Urine Urobilinogen (Auto) 0.2 mg/dL 03/26/24 14:34 Leukocyte Esterase (Auto) 0 Abdoul/uL 03/26/24 14:34 Assessment & Plan Assessment & Plan (1) Bladder outlet obstruction: Code(s): N32.0 - Bladder-neck obstruction Category: Medical (2) Hydrocele: Code(s): N43.3 - Hydrocele, unspecified Category: Medical Plan July follow-up Orders: Orders AMB Urinalysis Automated Today Z13.9 - Encounter for screening, unspecified Patient Instructions: This note is constructed using voice recognition software. While every effort has been made to ensure accuracy upper cutter errors may have been included. Imaging studies, laboratory and physical exam results were discussed and reviewed in detail. No major barriers to patient understanding were identified. An opportunity to ask questions regarding the treatment plan was provided. All questions were answered. The patient expressed understanding and agreement with the above treatment plan. The patient is aware they should contact our office by phone for worsening of their current condition or the appearance of new urologic symptoms. Compliance is encouraged with any medications and followup testing that is ordered. It is a privilege to participate in the urologic care of your patient. If you have any questions or concerns regarding treatment for the above conditions, or other urologic issues, please do not hesitate to contact me. The office telephone contact is [phone]. Sincerely, Dr Vadim Kidd MD, [facility] - Urology Compassionate Specialist Care for the Genitourinary System Coding Level of Care Code Est Pt Level 3 (54604) Diagnoses Bladder outlet obstruction N32.0 Hydrocele N43.3
== END 2024-03-26 14:59 | disposition home or self-care (01) ==
PROVIDERS: PCP Internal Medicine; Visit Provider Urology
DX: N32.0 Bladder-neck obstruction (principal); N43.3 Hydrocele, unspecified; Z13.9 Encounter for screening, unspecified
CPT/HCPCS: 99213

== ENCOUNTER → 2024-03-26 13:11 | Outpatient (BNVA) | payer MEDICARE, SELFPAY | PROVIDERS: PCP Internal Medicine; Visit Provider Urology | DX: N32.0 Bladder-neck obstruction (principal); N43.3 Hydrocele, unspecified | CPT/HCPCS: 81003; 99212 ==

== ENCOUNTER 2024-08-02 06:29 | Outpatient (REF) | payer MEDICARE, SELFPAY ==
--- OUTSIDE RECORDS SUMMARY | 2024-08-02 06:31 | XMS_ITS | Encounter Summary ---
Author Organization [facility] Address [address] [place] [address] Care Team Providers Care Warehouseman Name Role Phone Niecy Jose DO Primary Care Pro vider Unavailable Bert Harman MD Primary Care Provider [phone] Lorie Santana MD Unavailable [phone] Vadim Kidd MD Unavailable Unavailabl e Reason for Referral * Non ANGELITA (Urgent) - Authorized/Booked Specialty Diagnoses / Procedures Referred By Laila worley Referred To Contact Podiatry Procedures REFERRAL TO PODIATRY Niecy Jose DO [address] [place] [address] [address] [address] Referral ID Status Reason Start Date Expiration Date V isits Requested Visits Authorized [id number] Authorized/B ooked 07/05/2016 07/05/2017 1 1 Encounter Details Date Type Department Care Team Description 07/05/2016 Orders Only [place] [address] Niecy Jose DO Social History Tobacco Use Types Packs/Day Years Used Date Smoking Tobacco: Former Cigarettes 1 10 Smokeless Tobacco: Never Comments:quit 30 years ago Alcohol Use Standard Drinks/Week Comments Yes 0 (1 standard drink = 0.6 oz pur e alcohol) occasionally Sex Assigned at Date Recorded Not on file Job Start Date Occupation Industry Not on file Not on file Not on file documented as of this encounter Plan of Treatment Not on file documented as of this encounter Visit Diagnoses Not on filedocumented in this encounter Care Teams Warehouseman Relationship Specialty Start Date End Date Niecy Jose DO PCP - General Internal Medicine 01/30/15 07/09/20 Bert Harman MD [address] [place] [id number] PCP - General Internal Medicine 07/10/20 Lorie Santana MD [address] [place] [id number] Account Services Specialist Cardiology 03/07/21 Vadim Kidd MD [address] [place] [id number] Specialist Urology 07/12/21 documented as of this encounter
[2024-08-02 10:55] LABS: Prostate Specific Antigen 1.68 ng/mL (<0.05-4.0)
== END 2024-08-02 06:30 | disposition home or self-care (01) ==
LOC: HO.HMGCLDS 06:29
PROVIDERS: PCP Internal Medicine; Visit Provider Urology
DX: N32.0 Bladder-neck obstruction (principal); Z12.5 Encounter for screening for malignant neoplasm of prostate
CPT/HCPCS: 36415; 84153

== ENCOUNTER 2024-08-10 08:02 | Outpatient (AMB) | payer MEDICARE, SELFPAY ==
--- OUTSIDE RECORDS SUMMARY | 2024-08-10 08:06 | XMS_ITS | Encounter Summary ---
Author Organization [facility] Address [address] [place] [address] Care Team Providers Care Cement Finisher Apprentice Name Role Phone Niecy Jose DO Primary Care Pro vider Unavailable Bert Harman MD Primary Care Provider [phone] Lorie Santana MD Unavailable [phone] Vadim Kidd MD Unavailable Unavailabl e Reason for Referral * Non ANGELITA (Urgent) - Authorized/Booked Specialty Diagnoses / Procedures Referred By Laila worley Referred To Contact Podiatry Procedures REFERRAL TO PODIATRY Niecy Jose DO [address] [place] [id number] [address] [address] Referral ID Status Reason Start Date Expiration Date V isits Requested Visits Authorized [id number] Authorized/B ooked 07/05/2016 07/05/2017 1 1 Encounter Details Date Type Department Care Team Description 07/05/2016 Orders Only [place] [address] Niecy Jose DO Social History Tobacco Use [...] on filedocumented in this encounter Care Teams Cement Finisher Apprentice Relationship Specialty Start Date End Date Niecy Jose DO PCP - General Internal Medicine 01/30/15 07/09/20 Bert Harman MD [address] [place] [id number] PCP - General Internal Medicine 07/10/20 Lorie Santana MD [address] [place] [id number] [employer] Architect Cardiology 03/07/21 Vadim Kidd MD [address] [place] [id number] Specialist Urology 07/12/21 documented as of this encounter
--- NOTE | 2024-08-10 08:23 | A.OFFVIS_ITS ---
Intake Visit Reasons: 1yr/PSA/PVR Intake Note: Patient is present for 1Y/PSA/PVR Urology Medication:TERAZOSIN,FINASTERIDE,VITAMIN B12 Antibiotic Allergy:NONE Blood Thinner:WARFARIN TODAY'S PVR:0ML'S Operating Room Tech Required: No Allergies No Known Allergies Allergy (Verified 08/10/24 08:24) HPI Comments Details: All QUIÑONEZ is a very pleasant Spanish male. He is a patient of Dr Harman. He is seen for the following urologic conditions. - lower urinary tract symptoms - left hydrocele - drained Yearly review PSA remains low Combination therapy Effective emptying PVR 0 UA normal 12 month follow-up Lower Urinary Tract Symptoms: Here with his - She is translating Spanish for me Twelve month review Continues with combination therapy terazosin and finasteride Effective bladder emptying with reasonable stream Current visit is for further evaluation of, predominate obstructive symptoms. Current treatment includes 11/10 , medication, alpha roland, terazosin 2mg 12/10 , medication, alpha roland, terazosin 10mg add finasteride 06/11 trial stopping terazosin failed Prostate Symptom Score Moderate (9-19), Bother 4. Symptoms include 11/10 incomplete emptying, intermittency, weak stream, straining, nocturia (>2), and are progressing 12/10 , weak stream, nocturia (>2), and are stable 06/11 , incomplete emptying, weak stream, nocturia (>2), and are improving. Results from testing include cystoscopy Trilobar hypertrophy 12/10 Prior Prostate Score moderate. PSA PSA 11/10 4.8, 05/11 2.3, 05/12 2.3, 08/16 1.65, 08/17 1.9, 08/18 1.7 Prostate volume 75gm US 11/10. [facility] Medical History (Updated 01/07/24 @ 13:59 by Vadim Kidd MD) HTN (hypertension) History of kidney stones Weak urinary stream Bladder outlet obstruction Nocturia Weak urinary stream Bladder outlet obstruction Nocturia Family History (Updated 12/08/23 @ 11:48 by Dmitri Diane MD) Father No problems noted. Mother No problems noted. Social History Household Members: Spouse Housing: House Do you presently have visiting nurse or other home services: No Patient Tobacco Use Status: Tobacco use Unknown Second Hand Smoke Exposure: No service: No Review of Systems Const Denies chills and Denies fever(s) Card Reports no additional complaints and Denies syncope Resp Denies cough GI Denies abdominal pain and Denies heartburn Reports as per HPI and Denies change in libido Neuro Denies syncope Psych Denies change in libido Endo Denies change in libido Physical Exam Const General: cooperative, healthy appearing, comfortable and no acute distress Orientation/consciousness: patient oriented x3 HEENT Face and sinus: Yes normal facial exam Mouth: moist mucous membranes Neck Neck: Yes normal visual inspection, Yes full ROM and Yes trachea midline Chest Chest palpation & inspection: normal inspection of the chest Resp Effort & Inspection: normal respiratory effort, able to speak in complete sentences and no respiratory distress GI Inspection: Yes normal to inspection Back/Spine/Pelvis Cervical Spine: normal cervical lordosis Thoracic/Lumbar Spine: thoracic and lumbar spine normal to inspection Skin General skin exam: no rashes or lesions noted Neuro General: patient oriented x3, gait normal, tone normal and moves all extremities Extrem General: Yes normal to inspection and Yes capillary refill normal Office Procedures Post Void Residual Post Residual Void Post Void Residual (PVR): 0 [id number]-[id number] Void Residual by ultrasound Results AMB Urinalysis, Automated UA Leukoctes 0 Abdoul/uL Last Edit by GI Tejada on 08/10/24 08:34 UA Nitrite Negative Last Edit by GI Tejada on 08/10/24 08:34 UA Urobilinogen 0.2 mg/dL Last Edit by GI Tejada on 08/10/24 08:3 4 UA Protein 30 mg/dL Last Edit by GI Tejada on 08/10/24 08:34 UA pH 5.5 Last Edit by GI Tejada on 08/10/24 08:34 UA Blood 0 Douglas/uL Last Edit by GI Tejada on 08/10/24 08:34 UA Specific [place] 1.020 Last Edit by GI Tejada on 08/10/24 08: 34 UA Ketone Negative Last Edit by GI Tejada on 08/10/24 08:34 UA Bilirubin 0 mg/dL Last Edit by GI Tejada on 08/10/24 08:34 UA Glucose 0 mg/dL Last Edit by GI Tejada on 08/10/24 08:34 Results Reviewed Results Reviewed: Laboratory Last Values Urine pH (Auto) 5.5 08/10/24 08:33 Specific [place] (Auto) 1.020 08/10/24 08:33 Urine Protein (Auto) 30 mg/dL 08/10/24 08:33 Glucose (UA)(Auto) 0 mg/dL 08/10/24 08:33 Urine Ketones (Auto) Negative 08/10/24 08:33 Urine Blood (Auto) 0 Douglas/uL 08/10/24 08:33 Urine Nitrite (Auto) Negative 08/10/24 08:33 Urine Bilirubin (Auto) 0 mg/dL 08/10/24 08:33 Urine Urobilinogen (Auto) 0.2 mg/dL 08/10/24 08:33 Leukocyte Esterase (Auto) 0 Abdoul/uL 08/10/24 08:33 Assessment & Plan Assessment & Plan (1) Bladder outlet obstruction: Code(s): N32.0 - Bladder-neck obstruction Category: Medical (2) Nocturia: Code(s): R35.1 - Nocturia Category: Medical (3) Weak urinary stream: Code(s): R39.12 - Poor urinary stream Category: Medical Plan Twelve month follow-up Orders: Orders AMB Urinalysis Automated Today Z13.9 - Encounter for screening, unspecified Patient Instructions: This note is constructed using voice recognition software. While every effort has been made to ensure accuracy digital controls technical officer errors may have been included. Imaging studies, laboratory and physical exam results were discussed and reviewed in detail. No major barriers to patient understanding were identified. An opportunity to ask questions regarding the treatment plan was provided. All questions were answered. The patient expressed understanding and agreement with the above treatment plan. The patient is aware they should contact our office by phone for worsening of their current condition or the appearance of new urologic symptoms. Compliance is encouraged with any medications and followup testing that is ordered. It is a privilege to participate in the urologic care of your patient. If you have any questions or concerns regarding treatment for the above conditions, or other urologic issues, please do not hesitate to contact me. The office telephone contact is [phone]. Sincerely, Dr Vadim Kidd MD, [facility] - Urology Compassionate Specialist Care for the Genitourinary System Coding Level of Care Code Est Pt Level 3 (56836) Complex EM visit Add On G2211 Diagnoses Bladder outlet obstruction N32.0 Nocturia R35.1 Weak urinary stream R39.12 CPT Codes Post Residual Void - PVR CPT Code: 37407-Zxtt Void Residual by ultrasound ([id number])
== END 2024-08-10 08:52 | disposition home or self-care (01) ==
LOC: HO.HUSH 08:02
PROVIDERS: PCP Internal Medicine; Visit Provider Urology
DX: N32.0 Bladder-neck obstruction (principal); R35.1 Nocturia; R39.12 Poor urinary stream; Z13.9 Encounter for screening, unspecified
CPT/HCPCS: 99213; G2211

== ENCOUNTER → 2024-08-10 08:02 | Outpatient (BNVA) | payer MEDICARE, SELFPAY | PROVIDERS: PCP Internal Medicine; Visit Provider Urology | DX: N32.0 Bladder-neck obstruction (principal); R35.1 Nocturia; R39.12 Poor urinary stream | CPT/HCPCS: 51798; 81003; 99212 ==